=== PATIENT | male | born 1990 | race Caucasian/White ===

== ENCOUNTER 2016-08-31 06:28 | Emergency (ER) | payer OTHER ==
[~2016-08-31] VITALS: Ht 177.8 cm; Wt 74.8 kg
[~2016-08-31 06:28] MED LIST: ALPRAZOLAM1 M2 PO; AMOXICILLIN500 M1 PO; BACTRIM DS 8001 TAB PO; KEFLEX500 MG PO; TRAMADOL50 MG PO
[2016-08-31 06:37] VITALS: BP 146/73
--- NOTE | 2016-08-31 06:42 | ED SKIN/ALLERGY COMPLAINT ---
History of Present Illness General Chief Complaint: Skin Rash/ Abcess Stated Complaint: ABCESS ON RIGHT LEG Source: patient Exam Limitations: no limitations Vital Signs & Intake/Output Vital Signs & Intake/Output Vital Signs Date Time Temp Pulse Resp B/P B/P Pulse O2 O2 Flow FiO2 Mean Ox Delivery Rate 08/31 0637 98.5 83 18 146/73 99 Room Air Room Air Allergies Coded Allergies: NO KNOWN ALLERGIES (06/22/15) Reconcile Medications Alprazolam 1 MG TABLET 1 TAB PO TIDPRN PRN ANXIETY (Reported) Cephalexin (Keflex) 500 MG CAPSULE 1 CAP PO TID INFECTION Triage Note: TRIAGE: 26 Y/O MALE PRESENTS C/O ?ABCESS TO POSTERIOR RIGHT THIGH. PATIENT REPORTS "I POPPED IT LAST NIGHT, BUT NOW MY WORK NEEDS A NOTE." PATIENT ALSO REPORTS ?ABCESS CONTINUES TO RECUR. Triage Nurses Notes Reviewed? yes Onset: Abrupt Duration: minute(s): (few) Timing: recent history Severity: mild HPI: 26-year-old male history of recurrent abscesses presents to the ER for chief complaint of a cyst on his left buttock that drained. He states he was at work yesterday and had a hard time sitting down. He states when he was in the shower yesterday he was able to get the abscess to pop and then he was able to drain pus. No fever or chills. He has had recurrent issues in the same area. Usually they occur once a month lately they have a twice a month. Usually go away quickly with antibiotics. He is a half pack per day smoker. Denies any other medical history. Past History Travel History Traveled to [place] past 21 day No Medical History Any Pertinent Medical History? 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 No Review of Systems Review of Systems Constitutional: Denies: chills, fever. EENTM: Reports: no symptoms. Respiratory: Denies: cough, short of breath. Cardiovascular: Denies: chest pain, palpitations. GI: Reports: no symptoms. Genitourinary: Reports: no symptoms. Musculoskeletal: Reports: no symptoms. Skin: Reports: see HPI, erythema. Neurological/Psychological: Reports: no symptoms. Hematologic/Endocrine: Denies: bruising, bleeding. Immunologic/Allergic: Reports: no symptoms. All Other Systems: Reviewed and Negative Physical Exam Physical Exam General Appearance: well developed/nourished, alert, awake Head: atraumatic, normal appearance Eyes: Bilateral: normal appearance, PERRL, EOMI. Ears, Nose, Throat: normal pharynx, hearing grossly normal Neck: normal inspection, supple, full range of motion Respiratory: normal breath sounds, chest non-tender, no respiratory distress Cardiovascular: regular rate/rhythm Gastrointestinal: soft, non-tender Back: OPEN DRAINING AREA LEFT BUTTOCK (FINGERTIP) NO FLUCTUANCE Extremities: normal inspection, normal range of motion, no edema Neurologic/Psych: awake, alert, oriented x 3, normal mood/affect Lymphatic: no anterior cervical yoselin Progress Differential Diagnosis: abscess/cellulitis Plan of Care: open, draning area Departure Departure Time of Disposition: 647 Disposition: HOME OR SELF CARE Condition: Stable Clinical Impression Primary Impression: Abscess Referrals: ADENIKE CALLAHAN,ELIZA Moreno (PCP/Family) Additional Instructions: Take the Keflex as directed. Motrin and Tylenol is safe for pain. Warm soaks to the area. Keep the area very clean especially after toileting to prevent further infections. Departure Forms: Customer Survey General Discharge Information Prescriptions: Current Visit Scripts Cephalexin (Keflex) 1 CAP PO TID #30 CAP
[2016-08-31] MEDS ORDERED: KEFLEX500 M1 PO (06:50)
== END 2016-08-31 06:57 ==
LOC: ERH 06:28
DX: L02.31 Cutaneous abscess of buttock (principal)

== ENCOUNTER 2017-07-24 16:09 | Emergency (ER) | payer SELFPAY ==
[~2017-07-24] VITALS: Ht 177.8 cm; Wt 74.8 kg
[~2017-07-24 16:09] MED LIST changes: +IBUPROFEN600 M1 PO; +IBUPROFEN800 M1 PO; +KEFLEX500 M1 PO; +KETOROLAC TROME10 M1 PO; +METHADONE HCL10 M1 PO; +XANAX1 M1 PO; +XANAX2 M1 PO; +ZOFRAN ODT4 M1 SL
[2017-07-24 16:12] VITALS: BP 111/74
--- NOTE | 2017-07-24 17:08 | ED GENERAL ADULT ---
History of Present Illness General Chief Complaint: Fall Stated Complaint: FELL DOWN FLIGHT OF STAIRS, "PASSED OUT" Source: patient, family, old records Exam Limitations: intoxication Vital Signs & Intake/Output Vital Signs & Intake/Output Vital Signs Date Time Temp Pulse Resp B/P B/P Pulse O2 O2 Flow FiO2 Mean Ox Delivery Rate 07/24 1612 98.3 89 18 111/74 98 Room Air Allergies Coded Allergies: No Known Allergies (12/20/16) Reconcile Medications Alprazolam (Xanax) 1 MG TABLET 1 TAB PO BID PRN ANXIETY Alprazolam (Xanax) 2 MG TABLET 1 TAB PO DAILY PRN ANXIETY Ibuprofen 600 MG TABLET 1 TAB PO TID pain with food Ibuprofen 800 MG TABLET 1 TAB PO TID PRN PAIN Ibuprofen 800 MG TABLET 1 TAB PO TID pain Ketorolac Tromethamine 10 MG TABLET 1 TAB PO TID PRN PAIN RECIEVED IM IN ER Methadone Hydrochloride (Methadone HCl) 10 MG TABLET 6 TAB PO DAILY PAIN ( Reported) Ondansetron (Zofran Odt) 4 MG TAB.RAPDIS 1 TAB SL TID PRN nausea Triage Note: 27 YO MALE TO TRIAGE C/O "I FELL DOWN 2 FLIGHTS OF STAIRS" STATES HE GOT DIZZY AND FELL. DENIES LOC. C/O PAIN ALL OVER. STATES "I FELL DOWN THE STAIRS THE OTHER DAY AND THEN AGAIN TODAY" STATES HIS METHADONE DOSE HAS BEEN LOWERED AND HE THINKS THAT COULD BE WHY. DENIES DIZZINESS/LIGHTHEADENESS AT THIS TIME. DENIES C-SPINE TENDERNESS. PT STATES HE IS ALSO TAKING XANAX 1MG TID. PER MOTHER "HE IS TAKING WAY MORE THEN HE IS SUPPOSED TO" Triage Nurses Notes Reviewed? yes Onset: Last week Duration: week(s):, continues in ED, intermittent Timing: recent history Injury Environment: home Severity: moderate, severe Modifying Factors: Worsens With: medication. HPI: Patient reports falling down the stairs twice today sustaining multiple abrasions and contusions. His mother reports he is been taking too much of his Xanax and methadone and that he fell on the stairs last week also. He denies fever chills nausea vomiting diarrhea abdominal pain chest pain shortness breath headache dysuria rash bleeding loss consciousness change in bowel bladder habit. Past History Travel History Traveled to [place] past 21 day No Medical History Any Pertinent Medical History? 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 No Review of Systems Review of Systems Constitutional: Reports: no symptoms. EENTM: Reports: no symptoms. Respiratory: Reports: no symptoms. Cardiovascular: Reports: no symptoms. GI: Reports: no symptoms. Genitourinary: Reports: no symptoms. Musculoskeletal: Reports: no symptoms. Skin: Reports: see HPI. Neurological/Psychological: Reports: see HPI, weakness. Hematologic/Endocrine: Reports: no symptoms. Immunologic/Allergic: Reports: no symptoms. All Other Systems: Reviewed and Negative Physical Exam Physical Exam General Appearance: well developed/nourished, alert, awake, intoxicated Head: atraumatic, normal appearance Eyes: Bilateral: normal appearance, PERRL, EOMI. Ears, Nose, Throat: normal pharynx, normal ENT inspection, hearing grossly normal Neck: normal inspection, supple, full range of motion, no midline tenderness Respiratory: normal breath sounds, chest non-tender, no respiratory distress, quiet respiration, lungs clear Cardiovascular: regular rate/rhythm, normal peripheral pulses, norml femoral pulses equa Peripheral Pulses: 4+ carotid (R), 4+ carotid (L) Gastrointestinal: normal bowel sounds, soft, non-tender, no organomegaly Back: normal range of motion, no vertebral tenderness, scattered abrasions right thoracolumbar area Extremities: scattered abrasions to bilateral elbows left knee left hip Neurologic/Psych: no motor/sensory deficits, awake, alert, 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 Skin: intact, normal color, warm/dry Lymphatic: no anterior cervical yoselin Core Measures ACS in differential dx? No CVA/TIA Diagnosis: No Sepsis Present: No Sepsis Focused Exam Completed? No Progress Differential Diagnoses I considered the following diagnoses in my evaluation of the patient: drug intoxication electrolyte abnormality Plan of Care: Orders Procedure Date/time Status URINE DRUG SCREEN FOR ER ONLY 07/25 1647 Active URINALYSIS 07/25 1647 Complete ETHANOL 07/25 1647 Active COMPREHENSIVE METABOLIC PANEL 07/25 1647 Active CBC WITHOUT DIFFERENTIAL 07/25 1647 Complete Laboratory Tests 07/24/17 165: Serum Alcohol Pending 07/24/17 165: Sodium Pending, Potassium Pending, Chloride Pending, Carbon Dioxide Pending, Anion Gap Pending, BUN Pending, Creatinine Pending, BUN/Creatinine Ratio Pending , Glucose Pending, Calcium Pending, Total Bilirubin Pending, AST Pending, ALT Pending, Alkaline Phosphatase Pending, Total Protein Pending, Albumin Pending, Globulin Pending, Albumin/Globulin Ratio Pending, CBC w Diff NO MAN DIFF REQ, RBC 4.14 L, MCV 92.2, MCH 30.3, MCHC 32.9 L, RDW 13.1, MPV 7.4, Gran % 71.1, Lymphocytes % 20.4 L, Monocytes % 7.4, Eosinophils % 0.8, Basophils % 0.3, Absolute Granulocytes 5.6, Absolute Lymphocytes 1.6, Absolute Monocytes 0.6, Absolute Eosinophils 0.1, Absolute Basophils 0, Methadone Screen Pending, Barbiturate Screen Pending, Ur Phencyclidine Scrn Pending, Amphetamines Screen Pending, U Benzodiazepines Scrn Pending, Urine Cocaine Screen Pending, Urine Cannabis Screen Pending, Urine Color YEL, Urine Clarity CLEAR, Urine pH 7.0, Ur Specific [place] 1.015, Urine Protein NEG, Urine Ketones NEG, Urine Nitrite NEG, Urine Bilirubin NEG, Urine Urobilinogen 0.2, Ur Leukocyte Esterase NEG, Ur Microscopic SEDIMENT EXAMINED, Urine RBC >75 H, Urine WBC 1-3 H, Ur Epithelial Cells RARE, Urine Bacteria RARE H, Urine Mucus FEW, Urine Hemoglobin LARGE H, Urine Glucose NEG Initial ED EKG: none Departure Departure Time of Disposition: 1717 Disposition: LEFT AGAINST MEDICAL ADVICE Condition: Stable Clinical Impression Primary Impression: Altered mental status, unspecified Secondary Impressions: Abrasion, multiple sites, Fall (on) (from) unspecified stairs and steps, initial encounter, Methadone use, Xanax use disorder, moderate Referrals: Yi CALLAHAN,Ainsley Moreno (PCP/Family) Departure Forms: General Discharge Information Critical Care Note Critical Care Note Critical Care Time: non-applicable
[2017-07-24 17:13] LABS: ABSOLUTE BASOPHIL COUNT 0 /CUMM (0.0-0.2); ABSOLUTE EOSINOPHIL COUNT 0.1 /CUMM (0.0-0.7); ABSOLUTE GRANULOCYTE CT 5.6 /CUMM (1.4-6.5); ABSOLUTE LYMPH COUNT 1.6 /CUMM (1.2-3.4); ABSOLUTE MONOCYTE COUNT 0.6 /CUMM (0.10-0.60); BASOPHIL % 0.3 % (0.0-2.0); EOSINOPHIL % 0.8 % (0-5); GRANULOCYTE % 71.1 % (42.2-75.2); HEMATOCRIT 38.2 % (42-52); MEAN CORPUSCULAR HGB 30.3 PG (27.0-31.0); MEAN CORPUSCULAR HGB CONC 32.9 G/DL (33.0-37.0); MEAN CORPUSCULAR VOLUME 92.2 FL (80.0-94.0); MEAN PLATELET VOLUME 7.4 FL (7.4-10.4); PLATELET COUNT 317 /CUMM (130-400); RBC DISTRIBUTION WIDTH 13.1 % (11.5-14.5); RED BLOOD CELL CT 4.14 /CUMM (4.70-6.10); WHITE BLOOD CELL COUNT 7.8 /CUMM (4.8-10.8)
== END 2017-07-24 17:27 | disposition left against medical advice (07) ==
LOC: ERH 16:09
PROVIDERS: Emergency Medicine
DX: T14.8XXA Other injury of unspecified body region, initial encounter (principal); R41.82 Altered mental status, unspecified; W10.9XXA Fall (on) (from) unspecified stairs and steps, initial encounter; Y92.009 Unspecified place in unspecified non-institutional (private) residence as the place of occurrence of the external cause; Y93.9 Activity, unspecified
CPT/HCPCS: 80307; 81001; G0480

== ENCOUNTER 2017-08-29 14:02 | Emergency (ER) | payer OTHER ==
[~2017-08-29] VITALS: Ht 177.8 cm; Wt 68.0 kg
--- NOTE | 2017-08-29 14:47 | ED PSYCHIATRIC COMPLAINT ---
History of Present Illness General Chief Complaint: Psychiatric Related Complaint Stated Complaint: CUT WRIST IN PRISON CELL, ON PEER Source: patient, old records, EMS, police Exam Limitations: no limitations Allergies Coded Allergies: No Known Allergies (12/20/16) Reconcile Medications Alprazolam (Xanax) 1 MG TABLET 1 TAB PO BID PRN ANXIETY Alprazolam (Xanax) 2 MG TABLET 1 TAB PO DAILY PRN ANXIETY Clonidine HCl 0.1 MG TABLET 1 TAB PO BID withdrawal symptoms Ibuprofen 600 MG TABLET 1 TAB PO TID pain with food Ibuprofen 800 MG TABLET 1 TAB PO TID PRN PAIN Ibuprofen 800 MG TABLET 1 TAB PO TID pain Ketorolac Tromethamine 10 MG TABLET 1 TAB PO TID PRN PAIN RECIEVED IM IN ER Methadone Hydrochloride (Methadone HCl) 10 MG TABLET 6 TAB PO DAILY PAIN ( Reported) Ondansetron (Zofran Odt) 4 MG TAB.RAPDIS 1 TAB SL TID PRN nausea Triage Note: 27 YO MALE ALFREDO ON PEER FROM PRISON CELL. PER MANAGER PRODUCT MANAGEMENT, PT WAS FOUND IN CELL WITH A SMALL PIECE OF METAL HE FOUND ON THE FLOOR AND CUT HIS R WRIST STATING "HE WOULD RATHER THEN SIT AND DETOX IN A CELL FOR 3 DASY" PT ARRIVES & ORIENTED X3, NOTED WITH SUPERFISCIAL ABRASION TO R WRIST AREA, NO ACTIVE BLEEDING NOTED. 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 SECUIRTY CALLED FOR WANDING. Triage Nurses Notes Reviewed? yes Onset: Just prior to arrival Duration: minute(s):, constant, continues in ED Timing: recent history Severity: moderate Associated Symptoms: anxiety, suicidal ideation HPI: While in police custody patient cut his right wrist with a piece of metal and told the police he was suicidal. He is here on PEER. He reports doing a to get out of [facility] because he was uncomfortable and wants to go to methadone maintenance program for his opiate addiction. He denies fever chills nausea vomiting diarrhea abdominal pain chest pain shortness breath headache dysuria rash. (Ladonna CALLAHAN,Adalid) Vital Signs & Intake/Output Vital Signs & Intake/Output Vital Signs Date Time Temp Pulse Resp B/P B/P Pulse O2 O2 Flow FiO2 Mean Ox Delivery Rate 05/06 0441 97.6 65 18 96/76 100 Room Air 08/29 2123 98.1 70 18 105/52 98 Room Air 08/29 1906 98.3 59 20 132/72 99 Room Air 08/29 1707 97.5 52 18 101/47 98 Room Air 08/29 1500 89 128/86 05 1408 98.2 89 15 128/86 97 Room Air Room Air ED Intake and Output 08/30 0000 08/29 1200 Intake Total 0 Output Total Balance 0 Intake, Oral 0 Patient 150 lb Weight Weight Reported by Patient Measurement Method (Kelsey CALLAHAN,Sim Marquez) Past History Travel History Traveled to [place] past 21 day No Medical History Any Pertinent Medical History? 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 No (Adalid Dougherty MD) Review of Systems Review of Systems Constitutional: Reports: no symptoms. EENTM: Reports: no symptoms. Respiratory: Reports: no symptoms. Cardiovascular: Reports: no symptoms. GI: Reports: no symptoms. Genitourinary: Reports: no symptoms. Musculoskeletal: Reports: no symptoms. Skin: Reports: no symptoms. Neurological/Psychological: Reports: see HPI, anxiety, confusion. Hematologic/Endocrine: Reports: no symptoms. Immunologic/Allergic: Reports: no symptoms. All Other Systems: Reviewed and Negative (Adalid Dougherty MD) Physical Exam Physical Exam General Appearance: well developed/nourished, alert, awake, anxious, mild distress Head: atraumatic, normal appearance Eyes: Bilateral: normal appearance, PERRL, EOMI. 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 patient not suicidal, Patient reports telling police he wanted to kill himself to get out of the cold cell without comfort. (Ladonna CALLAHAN,Adalid) Progress Differential Diagnosis: drug intoxication, drug overdose, drug withdrawal, electrolyte abnormality, hypoglycemia Hand-Off Endorsed To: Kelsey CALLAHAN,Sim Marquez Endorsed Time: 1899 Pending: consult (Ladonna CALLAHAN,Adalid) Plan of Care: Orders Procedure Date/time Status Continuous Observation Monitor 09/09 182 Active Regular Diet 08/30 B Active Regular Diet 08/29 D Complete Continuous Observation Monitor 08/29 1426 Active CIWA 08/29 142 Active URINE DRUG SCREEN FOR ER ONLY 08/29 142 Complete ETHANOL 08/29 142 Complete COMPREHENSIVE METABOLIC PANEL 08/29 142 Complete CBC WITHOUT DIFFERENTIAL 08/29 1424 Complete ED CRISIS PSYCH CONSULT 08/29 142 Active Laboratory Tests 08/29/17 1707: Urine Opiates Screen > 4000.00 H, Methadone Screen < 40, Barbiturate Screen < 60, Ur Phencyclidine Scrn < 6.00, Amphetamines Screen < 100, U Benzodiazepines Scrn > 800 H, Urine Cocaine Screen < 50, Urine Cannabis Screen > 80.00 H 08/29/17 1445: Anion Gap 14, Estimated GFR > 60, BUN/Creatinine Ratio 8.3, Glucose 113 H, Calcium 9.7, Total Bilirubin 0.8, AST 18, ALT 22, Alkaline Phosphatase 92, Total Protein 7.5, Albumin 4.8, Globulin 2.7, Albumin/Globulin Ratio 1.8, CBC w Diff NO MAN DIFF REQ, RBC 4.55 L, MCV 90.3, MCH 29.3, MCHC 32.4 L, RDW 13.5, MPV 7.0 L, Gran % 82.9 H, Lymphocytes % 12.1 L, Monocytes % 4.5, Eosinophils % 0.4, Basophils % 0.1, Absolute Granulocytes 9.6 H, Absolute Lymphocytes 1.4, Absolute Monocytes 0.5, Absolute Eosinophils 0, Absolute Basophils 0, Serum Alcohol < 10.0 (Kelsey CALLAHAN,Sim Marquez) Departure Departure Disposition: HOME OR SELF CARE Condition: Stable Clinical Impression Primary Impression: Opiate abuse, continuous Secondary Impressions: Depression with suicidal ideation Referrals: Yi CALLAHAN,Ainsley Moreno (PCP/Family) Departure Forms: Customer Survey General Discharge Information Prescriptions: Current Visit Scripts Clonidine HCl 1 TAB PO BID #4 TAB (Ladonna CALLAHAN,Adalid) Departure Comments pt signed out to me by dr. dougherty, 08/29/17, 7pm pt signed out to dr. dougherty by me, 08/30/17, 7am. (Kelsey CALLAHAN,Sim Marquez)
[2017-08-29 14:49] LABS: ABSOLUTE BASOPHIL COUNT 0 /CUMM (0.0-0.2); ABSOLUTE EOSINOPHIL COUNT 0 /CUMM (0.0-0.7); ABSOLUTE GRANULOCYTE CT 9.6 /CUMM (1.4-6.5); ABSOLUTE LYMPH COUNT 1.4 /CUMM (1.2-3.4); ABSOLUTE MONOCYTE COUNT 0.5 /CUMM (0.10-0.60); BASOPHIL % 0.1 % (0.0-2.0); EOSINOPHIL % 0.4 % (0-5); GRANULOCYTE % 82.9 % (42.2-75.2); HEMATOCRIT 41.1 % (42-52); MEAN CORPUSCULAR HGB 29.3 PG (27.0-31.0); MEAN CORPUSCULAR HGB CONC 32.4 G/DL (33.0-37.0); MEAN CORPUSCULAR VOLUME 90.3 FL (80.0-94.0); PLATELET COUNT 354 /CUMM (130-400); RBC DISTRIBUTION WIDTH 13.5 % (11.5-14.5); RED BLOOD CELL CT 4.55 /CUMM (4.70-6.10); WHITE BLOOD CELL COUNT 11.6 /CUMM (4.8-10.8)
--- NOTE | 2017-08-29 20:04 | ED PSY CRISIS COLLATERAL NOTE ---
Collateral Note Collateral Note Family/Inform/Jessy Contacts: Spoke to patient's mother, Ioana Kaufman, . Ioana states the patient had made suicidal statements in the past on several occasions, but never acted upon them. Ioana states the patient has no history of suicide attempts. Ioana states the patient lives alone with his dog "who is everything to him." Ioana states the patient would never hurt himself as no one would care for his dog. Ioana states the patient has no weapons in his home that she is aware of. Ioana states she lives 5 minutes away from the patient and states that the patient would call her if he ever felt suicidal prior to acting upon his thought. Ioana states the patient was on methadone maintenance with a clinic and discharged on a rapid taper because his insurance lapsed. Ioana states the [facility] was willing to accept him as a methadone maintenance patient as long as he received a letter from his current prescriber that his Xanax would be lowered from 3mg daily to 2mg daily. Ioana states the letter was received via email today and she would bring the patient to [facility] on Thursday to begin his methadone maintenance treatment. Ioana states that she believes the patient would be safe to discharge from the hospital. She states she would pick him up from the hospital , drop him off at home and see him first thing in the morning.
--- NOTE | 2017-08-29 22:56 | ED PSYCH CRISIS CONSULTATION ---
Crisis Consult Basic Assessment Date of Consult: 08/29/17 Responsible Person/Accompanied By: ALFREDO on PEER Insurance Authorization: Insurance #1: Insurance name: SELF-PAY Phone number: Policy number: Group number: Authorization number: ED Provider: Patient's ED Provider: Adalid Dougherty MD Primary Care Physician: Patient's PCP: Ainsley Richmond MD PCP's Current Psychiatrist: JOELLEN Chambersingford Chief Complaint: Psychiatric Related Complaint Patient's Quote: "I knew I would go to the hospital" Present Illness: Pt. is a 27 year old male ALFREDO from the [employer] on a PEER stating that pt. had "stated he wanted to kill himself" and "tried to slicing his arm while in a cell". Pt. reported to this [facility] that he had been receiving methadone maintenance treatment at a facility in [place] until "my insurance ran out". Pt. reported that the treatment facility began tapering him off of his methadone and that he went from 70mg to 4mg in a matter of weeks. Pt. reported that he began to experience withdrawals and so began using heroin again about two weeks ago. Pt. reported that in the last couple of days he was using 20 bags a day, IV. Pt. reported that last night, he used the last of his heroin (one bag). Pt. reported that this morning while shopping with his mother , he decided to steal razor blades from the store so that he could sell them and then buy more heroin. Pt. was caught by store personnel stealing the razors and initially got away, but [place] [employer] later arrested him and brought him to the station. Pt. reported that while in the cell, he began to experience withdrawal symptoms and asked the police to take him to the hospital to detox, however they said "no". Pt. said that he then said that he was going to harm himself and began rubbing his forearm against the edge of the metal bed post in his cell. Pt. reported that his motive in doing this was so that he could get out of the cell and be brought to the hospital. Pt. denied having had any suicidal intent or thoughts. Pt. also denied any current depression. Pt. reported that he has never attempted suicide and has never had any thoughts of ending his life. Pt. was admitted to [facility] in 2016 after making a homicidal statement to his mother. Pt. also has history of making suicidal threats. Pt. also reports that he has a past diagnosis of Bipolar Disorder and was on [place] at one time; however reported that he went off of it because it "made me sick". Pt. is currently being prescribed Xanax by Delfina CUENCA. Pt. also reported that in the past week, he did have an intake at the [facility] (since they take clients without insurance) and was hoping to continue his methadone maintenance treatment there, however they said that he first needed to get a letter from Ms. Fabian stating that she would lower his Xanax from 3mg a day to 2mg a day. Pt. said that he was not able to get in touch with Ms. Fabian until today. Pt. said that he now plans on going back to [facility] on Thursday (08/31/17) so that he can get back on methadone maintenance. This [facility] also spoke to pt's mother, Dotty, via telephone. She reported that she has never known pt. to attempt to kill himself nor has pt. made any suicidal statements recently. She said that pt. has made threats in the past, but that he is "the boy who cried villagomez". She said that she does not believe that pt. would ever try to kill himself. She confirmed that she plans on taking him to [facility] on Thursday with the letter from Ms. Fabian so that pt. can continue his methadone treatment there. Dotty said that she could not pick up attendant pt. from the ED tonight. However, she did say that she will come to the ED tomorrow morning to pick him up and then will be able to stay with him at his home until Thursday morning when she will take him to [facility]. Both pt and his mother stated that pt. does not have access to guns or other weapons. The CSS[facility] was completed with pt. Pt's risk factors are: self-injurious behavior without suicidal intent in the past week, currently detoxing from heroin, previous psychiatric treatment and diagnoses, a hx of treatment non-compliance, highly impulsive behaviors, substance abuse or dependence and recent anxiety or agitation. His protective factors are responsibility to his dog and the support of his mother. Patient's Address: [address] [place] [id number] Other Phone Number: Who Do You Live With? Patient/Self Family/Informants Interviewed: mother (Dotty Kaufman) Allergies - Coded Allergies: No Known Allergies (12/20/16) Current Medications - Scheduled Medications Ibuprofen 600 MG TABLET 1 TAB PO TID pain #10 TAB Prescribed by Harvey Ellis DO on 02/05/17 Ibuprofen 800 MG TABLET 1 TAB PO TID pain #30 TAB Prescribed by Dex Thao on 12/10/16 Methadone Hydrochloride (Methadone HCl) 10 MG TABLET 6 TAB PO DAILY PAIN ( Reported) Entered as Reported by Jolie Mckeon on 11/13/16 0825 Scheduled PRN Medications Alprazolam (Xanax) 1 MG TABLET 1 TAB PO BID PRN ANXIETY #4 TAB Prescribed by Kleber Ortiz on 02/07/17 Alprazolam (Xanax) 2 MG TABLET 1 TAB PO DAILY PRN ANXIETY #3 TAB Prescribed by Kleber Ortiz on 02/07/17 Ibuprofen 800 MG TABLET 1 TAB PO TID PRN PAIN #30 TAB Prescribed by Virgie Calloway MD on 02/04/17 Ketorolac Tromethamine 10 MG TABLET 1 TAB PO TID PRN PAIN #15 TAB Prescribed by Kleber Ortiz on 02/07/17 Ondansetron (Zofran Odt) 4 MG TAB.RAPDIS 1 TAB SL TID PRN nausea #10 TAB Prescribed by Yue Ramos on 12/19/16 Laboratory Results: Laboratory Tests 08/29/17 1707: Urine Opiates Screen > 4000.00 H, Methadone Screen < 40, Barbiturate Screen < 60, Ur Phencyclidine Scrn < 6.00, Amphetamines Screen < 100, U Benzodiazepines Scrn > 800 H, Urine Cocaine Screen < 50, Urine Cannabis Screen > 80.00 H 08/29/17 1445: Anion Gap 14, Estimated GFR > 60, BUN/Creatinine Ratio 8.3, Glucose 113 H, Calcium 9.7, Total Bilirubin 0.8, AST 18, ALT 22, Alkaline Phosphatase 92, Total Protein 7.5, Albumin 4.8, Globulin 2.7, Albumin/Globulin Ratio 1.8, CBC w Diff NO MAN DIFF REQ, RBC 4.55 L, MCV 90.3, MCH 29.3, MCHC 32.4 L, RDW 13.5, MPV 7.0 L, Gran % 82.9 H, Lymphocytes % 12.1 L, Monocytes % 4.5, Eosinophils % 0.4, Basophils % 0.1, Absolute Granulocytes 9.6 H, Absolute Lymphocytes 1.4, Absolute Monocytes 0.5, Absolute Eosinophils 0, Absolute Basophils 0, Serum Alcohol < 10.0 Past History Past Medical History Neurological: NONE EENT: NONE Cardiovascular: NONE Respiratory: ASTHMA A CHILD Gastrointestinal: NONE Hepatic: NONE Renal: NONE Musculoskeletal: NONE Psychiatric: anxiety, bipolar disease, depression, IV drug abuse, opioid dependence, substance abuse (also using Marijuana) Endocrine: NONE Blood Disorders: NONE Cancer(s): NONE DIRECTOR INFORMATICS/Reproductive: NONE Past Surgical History Surgical History: 1 Psychosocial History Strengths/Capabilities: The patient's mother appears to be supportive and the patient was able to get a couple of months clean off of drugs. Has intake at [facility]. Physical Limitations (Interventions): None Psychiatric Treatment History Psych Treatment Psychiatric Treatment Yes Inpatient Treatment Yes Outpatient Treatment Yes Location of Treatment Sees Delfina Fabian APRN outpatient. One inp. admission in [facility] Reason for Treatment Anxiety, Bipolar D/O Dates of Treatment see Ms. Fabian currently. [facility] in 2016/. Response to Treatment did not f/u with aftercare plan after being d/c'ed from [facility] in 2015 Diagnosis by History: n/a Substance Use/Abuse History Drug Use/Abuse 1 Substances Used/Abused Yes Substance Used/Abused Heroin First Use unk Last Used last night How much used/taken 1 bag How often daily For how long past two weeks Route of use IV Drug Use/Abuse 2 Substances Used/Abused Yes Substance Used/Abused Marijuana First Use unk Last Used yesterday How much used/taken unk How often daily For how long unk Route of use smoking Substance Abuse Treatment Substance Abuse Treatment Past Substance Abuse TX Yes Inpatient Treatment Yes Outpatient Treatment Yes Location of Treatment Methadone Maintenance in [place], has done inpatient also Reason for Treatment Heroin detox, methadoine maintenance Dates of Treatment was doing methadone maintenance up until a few weeks ago when insurance Response to Treatment pt. experinced w/d's due to being tapered off of methadone too quickly- began using heroin again two weeks ago. Prior to this, pt. reports had been clean for several years. Comments: n/a Current Mental Status Mental Status Orientation: Person, Place, Situation Affect: WNL Speech: WNL Neuro-vegetative: WNL Appearance Appearance- Dress/Hygiene: WNL Behaviors Thought Process: WNL Thought Content: WNL Memory: WNL Insight: Poor SI/HI Risk Assessment Past Suicidal Ideation/Attempts No (pt. denies) Current Suicidal Ideation/Att No (pt. denies) Past Homicidal Ideation/Att: Yes (made threats in past (2016)) Current Homicidal Ideation/Attempts No (pt. denies) Degree of Intent: None Danger To: none Gravely Disabled: none Risk Factors: SA/MH hospitalized, substance abuse, poor impulse control, lives alone, male Lethality Ratin (mild) PTSD Checklist PTSD Done? patient declined ED Management Sitter: Yes Restraints: No DSM5/PS Stressors/Medical Prob Diagnosis' (DSM 5, Stressors, Medical): F11.20 - Opioid Use D/O, severe. Stressors - detoxing from Heroin. Medical - none Current GAF: 45 Comments: detoxing from heroin currently Departure Disposition Psych Medical Clearance Date: 08/29/17 Medically Cleared at: 1814 Time Started: 1814 Time Ended: 1899 Psychiatrist Consulted: Sim Olivo MD Date Disposition Established: 08/29/17 Time Disposition Established: 1899 Plan for Disposition - Modality: H/O in ED Facility: [facility] Follow-up Appt Date: 08/31/17 Contact: [facility] Telephone: n/a Rationale for Disposition: Pt. denies suicidal thoughts and reports that he self-harmed in senior care cell so that he cpould be brought to ED because he was detoxing from heroin. Pt. will be held over in ED tonight so that mother can pick him up and take him home where she hasgreed to saty with him until Thursday morning when he will go to [facility] to get back oin methadone. ED doctor will be asked to provide pt. with a small script for Clonodine to treat any w/d symptoms. Additional Instructions: n/a Referrals Yi CALLAHAN,Ainsley Moreno (PCP/Family)
[2017-08-30 04:41] VITALS: BP 96/76
[2017-08-30] MEDS ORDERED: CLONIDINE HCL0.1 MG PO (06:02)
== END 2017-08-30 06:15 ==
LOC: ERH 14:02
PROVIDERS: Emergency Medicine
DX: F11.10 Opioid abuse, uncomplicated (principal); F32.9 Major depressive disorder, single episode, unspecified; R45.851 Suicidal ideations
CPT/HCPCS: 80307; G0463; G0480

== ENCOUNTER 2017-11-02 19:19 | Inpatient (IN) | payer OTHER ==
[~2017-11-02] VITALS: Ht 175.3 cm; Wt 69.4 kg
[~2017-11-02 19:19] MED LIST changes: +CLONIDINE HCL0.1 MG PO
--- NOTE | 2017-11-02 19:24 | ED PSYCHIATRIC COMPLAINT ---
See Addendum History of Present Illness General Chief Complaint: ETOH/Drug Related Complaint Stated Complaint: BIBA 40 PILLS SWALLOWED WITH RUBBING ALCOHOL Source: patient, old records, EMS, police Exam Limitations: no limitations Vital Signs & Intake/Output Vital Signs & Intake/Output Vital Signs Date Time Temp Pulse Resp B/P B/P Pulse O2 O2 Flow FiO2 Mean Ox Delivery Rate 11/03 1334 97.6 78 16 110/70 98 Room Air 11/03 1107 98.2 75 14 110/60 95 Room Air 11/03 0934 98.1 76 14 110/60 98 Room Air 11/03 0736 98.3 71 12 112/63 93 Room Air 11/03 0536 98.7 80 12 108/66 96 Room Air 11/03 0352 16 11/03 0344 98.7 78 10 110/66 95 Room Air 11/03 0045 98.4 76 14 112/64 98 Room Air 11/02 2213 98.3 75 20 116/64 99 Room Air 11/02 2207 Room Air 11/02 1953 97.3 77 18 114/67 98 Room Air ED Intake and Output 11/03 0000 11/02 1200 Intake Total Output Total Balance Patient 150 lb Weight Weight Estimated Measurement Method Allergies Coded Allergies: No Known Allergies (12/20/16) Triage Nurses Notes Reviewed? yes HPI: Patient brought in on a police paper after a potential suicide attempt. Patient 's mother called the police stating that the patient took 40 Celexa in a suicide attempt. Patient denies taking any pills. Patient states that his mother through the pill bottle at him and told him to overdose and and when he went and she took the pills and flushed them down the toilet. Patient states that then he left the house and then the police found him and made him come to the emergency department. Patient denies any suicide ideation. Patient is on the methadone program. Patient denies coingestions however the mom states that he also took his whole bottle of Xanax. (Marine CALLAHAN,[place]) Reconcile Medications Alprazolam 0.5 MG TABLET 1 TAB PO 4XDP PRN ANXIETY (Reported) Methadone HCl 10 MG/ML ORAL.CONC 80 MG PO DAILY MAINTENCE (Reported) (Ladonna CALLAHAN,Adalid) Past History Travel History Traveled to [place] past 21 day No Medical History Any Pertinent Medical History? see below for history Neurological: NONE EENT: NONE Cardiovascular: NONE Respiratory: ASTHMA A CHILD Gastrointestinal: NONE Hepatic: NONE Renal: NONE Musculoskeletal: NONE Psychiatric: anxiety, bipolar disease, depression, IV drug abuse, opioid dependence, substance abuse (also using Marijuana) Endocrine: NONE Blood Disorders: NONE Cancer(s): NONE DB2 SYSTEMS PROGRAMMER/Reproductive: NONE History of MRSA: Yes History of VRE: Yes History of CDIFF: Yes Surgical History Surgical History: none Psychosocial History Who do you live with Patient/Self What is your primary language Icelandic Tobacco Use: Current Daily Use Daily Tobacco Use Amount/Type: => 5 Cigarettes daily ETOH Use: occasional use Illicit Drug Use: heroin, benzodiazepines Family History Family History, If Any: grand father Relation not specified for: FH: CAD (coronary artery disease) Hx Contributory? No (Marine CALLAHAN,[place]) Review of Systems Review of Systems Constitutional: Reports: no symptoms. EENTM: Reports: no symptoms. Respiratory: Reports: no symptoms. Cardiovascular: Reports: no symptoms. GI: Reports: no symptoms. Genitourinary: Reports: no symptoms. Musculoskeletal: Reports: no symptoms. Skin: Reports: no symptoms. Neurological/Psychological: Reports: no symptoms. Hematologic/Endocrine: Reports: no symptoms. Immunologic/Allergic: Reports: no symptoms. All Other Systems: Reviewed and Negative (Marine CALLAHAN,[place]) Physical Exam Physical Exam General Appearance: well developed/nourished, alert, awake, anxious, mild distress Head: atraumatic, normal appearance Eyes: Bilateral: PERRL, EOMI, other (SLUGGISH). Ears, Nose, Throat: normal pharynx, normal ENT inspection, hearing grossly normal Neck: normal inspection, supple, full range of motion Respiratory: normal breath sounds, chest non-tender, no respiratory distress, lungs clear Cardiovascular: regular rate/rhythm, normal peripheral pulses Gastrointestinal: normal bowel sounds, soft, non-tender Extremities: normal range of motion Neurological/Psychiatric: no motor/sensory deficits, awake, alert, normal mood/ affect, calm, oriented x 3 Appearance/Memory/Insight: denies illness Behavoir/Eye Contact/Speech: cooperative, normal speech, good eye contact Thoughts/Hallucinations: normal thought pattern, no apparent hallucination Skin: intact, normal color, warm/dry SAD PERSONS Done? CRISIS CONSULT OBTAINED (Marine CALLAHAN,[place]) Progress Differential Diagnosis: drug intoxication, drug overdose, drug withdrawal, electrolyte abnormality Plan of Care: Orders Procedure Date/time Status Regular Diet 11/03 L Active Continuous Observation Monitor 11/02 1924 Active ED CRISIS PSYCH CONSULT 11/02 1924 Active URINE DRUGS OF ABUSE 11/02 1922 Complete URINALYSIS 11/02 1922 Complete TROPONIN LEVEL 11/02 1922 Complete SERUM OSMOLALITY 11/02 1922 Complete ETHANOL 11/02 1922 Complete COMPREHENSIVE METABOLIC PANEL 11/02 1922 Complete CREATINE PHOSPHOKINASE 11/02 1922 Complete CBC WITHOUT DIFFERENTIAL 11/02 1922 Complete ACETONE 11/02 1922 Complete EKG 11/02 1922 Active Laboratory Tests 11/02/171932: Urine Opiates Screen 3454.00 H, Methadone Screen > 735 H, Barbiturate Screen < 60, Ur Phencyclidine Scrn 8.20, Amphetamines Screen < 100, U Benzodiazepines Scrn > 800 H, Urine Cocaine Screen < 50, Urine Cannabis Screen > 80.00 H 11/02/171932: Anion Gap 10, Estimated GFR > 60, BUN/Creatinine Ratio 7.5, Glucose 95, Serum Osmolality 295, Calcium 9.9, Total Bilirubin 0.4, AST 36, ALT 46, Alkaline Phosphatase 78, Creatine Kinase 122, Troponin I < 0.01, Total Protein 7.0, Albumin 4.3, Globulin 2.7, Albumin/Globulin Ratio 1.6, CBC w Diff NO MAN DIFF REQ, RBC 4.26 L, MCV 90.8, MCH 30.6, MCHC 33.8, RDW 13.5, MPV 7.1 L, Gran % 42.3, Lymphocytes % 42.4, Monocytes % 9.5 H, Eosinophils % 5.0, Basophils % 0.8 , Absolute Granulocytes 3.0, Absolute Lymphocytes 3.0, Absolute Monocytes 0.7 H , Absolute Eosinophils 0.4, Absolute Basophils 0.1, Serum Alcohol < 10.0, Acetone Level POSITIVE : UNDILUTED, Urinalysis MOD H, Urine Color YEL, Urine Clarity HAZY H, Urine pH 7.5, Ur Specific [place] 1.010, Urine Protein NEG, Urine Ketones NEG, Urine Nitrite NEG, Urine Bilirubin NEG, Urine Urobilinogen 0.2, Ur Leukocyte Esterase NEG, Ur Microscopic SEDIMENT EXAMINED, Urine RBC 15- 25 H, Urine WBC 1-3 H, Ur Epithelial Cells RARE, Urine Crystals 1+ CA OX H, Urine Bacteria RARE H, Urine Mucus MOD H, Urine Hemoglobin MOD H, Urine Glucose NEG Hand-Off Endorsed To: Adalid Dougherty MD Endorsed Time: 0700 Pending: consult Comments: OSMOLARGAP = 4 (Marine CALLAHAN,[place]) Hand-Off Endorsed To: Harvey Ellis DO Endorsed Time: 1500 Pending: other (bed search) (Ladonna CALLAHAN,Adalid) Departure Departure Disposition: STILL A PATIENT Condition: Stable Clinical Impression Primary Impression: Polysubstance abuse Referrals: Yi CALLAHAN,Ainsley Moreno (PCP/Family) Departure Forms: Customer Survey General Discharge Information (Marine CALLAHAN,[place]) Departure Comments 11/03/17 4:17 PM The patient was signed out to me by Dr. Dougherty at 3 PM. He has been seen evaluated and cleared by crisis. (Harvey Ellis DO)
[2017-11-02 19:55] LABS: ABSOLUTE BASOPHIL COUNT 0.1 /CUMM (0.0-0.2); ABSOLUTE EOSINOPHIL COUNT 0.4 /CUMM (0.0-0.7); ABSOLUTE MONOCYTE COUNT 0.7 /CUMM (0.10-0.60); BASOPHIL % 0.8 % (0.0-2.0); GRANULOCYTE % 42.3 % (42.2-75.2); HEMATOCRIT 38.7 % (42-52); MEAN CORPUSCULAR HGB 30.6 PG (27.0-31.0); MEAN CORPUSCULAR HGB CONC 33.8 G/DL (33.0-37.0); MEAN CORPUSCULAR VOLUME 90.8 FL (80.0-94.0); MEAN PLATELET VOLUME 7.1 FL (7.4-10.4); PLATELET COUNT 281 /CUMM (130-400); RBC DISTRIBUTION WIDTH 13.5 % (11.5-14.5); RED BLOOD CELL CT 4.26 /CUMM (4.70-6.10); WHITE BLOOD CELL COUNT 7.1 /CUMM (4.8-10.8)
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
[2017-11-03] MEDS ORDERED: ALPRAZOLAM0.5 M4 PO (13:20)
[2017-11-03] MEDS ORDERED: METHADONE10 MG/1 M2 PO (13:20)
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
[2017-11-04 16:59] VITALS: BP 141/71
[2017-11-04] MEDS ORDERED: KLONOPIN1 M1 PO (19:52)
[2017-11-04 19:57] VITALS: BP 138/75
[2017-11-05 07:41] VITALS: BP 128/60
--- NOTE | 2017-11-05 10:47 | CPS PROVIDER INIT ASMT PSYCH ---
Psychiatric Admission Chief Data Officer's Note Reviewed: Yes Patient Seen and Examined: Yes Identifying Information: Pt is a 27 year old single male [facility] Chief Complaint: Police report alleges that the patient actually took 45-50 tablets in an overdose and further alleges that he took methadone liquid and rubbing alcohol to wash the pills down. It is not clear whether there was an actual overdose are not since the patient was medically cleared in the emergency room and did not require any medical admission. Reaction to Hospitalization: The patient was admitted on a physician emergency certificate. History of Present Illness Onset of Illness: The patient has been in psychiatric treatment since at least December 2015. Circumstances Leading to Admission: An alleged overdose Problem(s) Justifying Need for Admission: An alleged overdose Past Psychiatric History Past Diagnosis(es)- if any: Unspecified bipolar disorder Opioid use disorder Cannabis use disorder Alcohol use disorder Past Precipitating Factors- if any: Relapse to substance use - Include inpatient and outpatient treatment Treatment History: The patient was admitted to the inpatient psychiatric unit at [facility] on January 17, 2016 and was discharged on January 21, 2016. The patient was admitted that time because "my mom told the police I took pills out of the cabinet and took all of them." The patient was discharged with a diagnosis of unspecified bipolar disorder as well as opioid use disorder intravenous heroin, alcohol alcohol use disorder and cannabis use disorder. History of Suicide Attempts or Gestures There was a previous allegation of the patient taking an overdose in 2015 Substance Abuse History: Patient has history of intravenous heroin use/opioid use disorder Cannabis use disorder Alcohol use disorder Allergies: Coded Allergies: No Known Allergies (12/20/16) Home Med List: Methadone HCl 10 MG/ML ORAL.CONC 80 MG PO DAILY MAINTENCE (Reported) Entered as Reported by Jese Cramer on 11/03/17 1320 Scheduled PRN Medications Alprazolam 0.5 MG TABLET 1 TAB PO 4XDP PRN ANXIETY #120 (Reported) Entered as Reported by Jese Cramer on 11/03/17 1320 - Include any medical condition(s) that may - impact the patient's recovery/remission Past History Medical History Neurological: NONE EENT: NONE Cardiovascular: NONE Respiratory: ASTHMA A CHILD Gastrointestinal: NONE Hepatic: NONE Renal: NONE Musculoskeletal: NONE Psychiatric: anxiety, bipolar disease, depression, IV drug abuse, opioid dependence, substance abuse (also using Marijuana) Endocrine: NONE Blood Disorders: NONE Cancer(s): NONE 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 Juancarlos pak's notes from 2016: "Patient born in and spent first 5-6 years in [place] but been living in [place] most of the time since then then though never completed [place] citizenship, has had "permanent resident card" but recently some problem around "renewal" of current alien status which has been causing patient some anxiety" Social History Living Situation: With mother and stepfather Significant Relationships (family/friends): Mother and stepfather Education: Unknown Vocation/Occupation: Currently unemployed Legal: pt has had several arrests in which have no ended in incarcerations or probation. Pt currently has court on 11/11/17 for an arrest on 08/29/17 for Robbery and Larceny. Pt was in the [employer] from [id number] in which he was dishonorably discharged for his drug use. Cruz states that pt has used all kinds of drugs since 2010 and never sticks with any treatment. Healthly Behaviors Screening Tobacco Screening Tobacco Use from ED Docu: Current Daily Use Daily Tobacco Use Amount/Type: => 5 Cigarettes daily - If tobacco counseling indicated - the following topics are required. - #1 Recognizing dangerous situations. - #2 Coping Skills. - #3 Basic information about quitting. Status of Tobacco Cessation Counseling: #1, #2 AND #3 Completed Cessation Med Status Nicotine Patch Ordered Alcohol Screening - ETOH screen POS if BAL >=80 or Audit-C>= M4/F3 Audit-C Score from Diag Assess: 0 Blood Alcohol Level: Laboratory Tests 11/02 1932 Toxicology Serum Alcohol (<10 MG/DL) < 10.0 Alcohol Use Screening Results: Neg per Audit C &/or BAL - If ETOH counseling indicated - the following topics are required. - #1 Express concern about the patient's - drinking at unhealthy levels, include informing - of national norms for moderate drinking: - men <= 14 drinks/week, max 4 drinks/occasion - women <= 7 drinks/week, max 3 drinks/occasion - #2 Providing feedback, including linking alcohol to - negative physical effects (liver injury, hypertension) - negative emotional effects (relationship problems and - depression) - negative occupational consequences (reduced work - performance) - #3 Advising the patient to abstain from alcohol or - to drink below national norms for moderate drinking - (as listed above). Status of ETOH Use Counseling: N/A B/C NO ETOH Use Metabolic Screening - Screen if on a Neuroleptic Medication - Metabolic screening should include: - Blood Pressure, BMI, Glucose or Hgb A1c, & a - Lipid profile from within the past 365 days. Metabolic Screening Not Applicable, patient not on a neuroleptic. Exam and Plan Mental Status Examination Ambulation Status: Patient was steady on his feet. Appearance: Unremarkable appearance, some visible tattoos Attitude towards examiner: Calm and cooperative. Psychomotor activity: Normal psychomotor activity. Behavior: No abnormal or bizarre behaviors. Quality of speech: Normal speech, not pressured, not slurred. Affect: Constricted affect. Mood: Anxious and somewhat depressed. Suicidal Ideation: Denied thoughts of suicide since arrival to the unit. Homicidal Ideation: Denied violent thoughts or homicidal ideation. Hallucinations: Denied hallucinations B Paranoid/Delusional Material: Denied feeling paranoid, there were no delusions during the interview. Difficulties with thought organization: The patient was coherent, there were no difficulties with organizing his thoughts and no thought disorder. Insight: Partial insight Judgment: Good judgment in hypothetical situations during the interview but his history suggests poor judgment Orientation: Alert and oriented to time, place, and person. Cognition: He did not seem to have any difficulties with information processing during the interview. Memory Function: He did not seem to have difficulties with short-term memory during the interview. Estimate of intellectual functioning: Average Assets/Strengths Patient Identified Assets/Strengths: The patient is intelligent, resourceful, has a supportive mother and stepfather. Impression/Plan Impression and Plan: 27-year-old single white male with significant substance abuse history presented with allegations of overdosing on medications. The patient has been abusing Xanax before coming to the hospital. - Include all active medical diagnosis that require tx DSM 5 Diagnosis(es): Unspecified depressive disorder Unspecified anxiety disorder Opioid use disorder Sedative hypnotic use disorder - Initial Tx Plan for Active Psych & Medical Conditions Treatment Plan: Inpatient psychiatric care with safety checks every 15 minutes Reduce Klonopin to 0.5 mg in the morning 0.5 mg in the afternoon and 2 mg at bedtime Reduce methadone to 70 mg daily Biopsychosocial assessment and collateral information by social work Aftercare planning by social work Nursing assessments and vital signs and patient education by nursing staff Group therapy, milieu therapy, activities therapy Patient will be evaluated daily by a psychiatrist - Factors that would help patient function - in a less restrictive setting. Factors: The patient will be discharge if he continues to deny suicidal ideation and if there is a discharge plan that is deemed to be safe
[2017-11-05 12:00] VITALS: BP 128/61
--- NOTE | 2017-11-05 12:14 | History & Physical ---
General Information and HPI MD Statement: I have seen and personally examined BONG VINES and documented this H&P. The patient is a 27 year old M who presented with a patient stated chief complaint of "I am tired". Source of Information: patient, family, police Exam Limitations: unable to give history History of Present Illness: 27-year-old white male was brought in by ambulance after taking approximately 40 pills of Celexa 40 mg and he swallowed with rubbing alcohol. Mother called the police stating that the patient took the medication on a suicidal attempt. The patient denies. Patient has had drug problems over the years and is on a methadone program. And still smokes pot 2-3 times a week due to all his problems is admitted for evaluation and treatment. Allergies/Medications Allergies: Coded Allergies: No Known Allergies (12/20/16) Home Med list Alprazolam 0.5 MG TABLET 1 TAB PO 4XDP PRN ANXIETY (Reported) Clonazepam (Klonopin) 1 MG TABLET 1 MG PO ANXIETY (Reported) Methadone HCl 10 MG/ML ORAL.CONC 80 MG PO DAILY MAINTENCE (Reported) Compliance With Home Meds: UNKNOWN Past History Travel History Traveled to [place] past 21 day No Medical History Neurological: NONE EENT: NONE Cardiovascular: NONE Respiratory: ASTHMA A CHILD Gastrointestinal: NONE Hepatic: NONE Renal: NONE Musculoskeletal: NONE Psychiatric: anxiety, bipolar disease, depression, IV drug abuse, opioid dependence, substance abuse (also using Marijuana) Endocrine: NONE Blood Disorders: NONE Cancer(s): NONE 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 Exam & Diagnostic Data Last 24 Hrs of Vital Signs/I&O Vital Signs Date Time Temp Pulse Resp B/P B/P Pulse O2 O2 Flow FiO2 Mean Ox Delivery Rate 11/05 1200 58 128/61 11/05 0741 97.9 64 128/60 11/04 1957 98.0 72 138/75 11/04 1659 97.8 70 141/71 11/04 1429 98.1 58 20 122/68 94 Room Air Intake & Output 11/05 1600 11/05 0800 11/05 0000 Intake Total Output Total Balance Patient 153 lb Weight Physical Exam General Appearance Alert, Oriented X3, Cooperative, No Acute Distress Skin No Breakdown, multiple tattoos HEENT PERRLA, EOMI Neck Supple, No JVD, No thryomegaly, +2 Carotid Pulse wo Bruit Lymphatic Axillary nl, Cervical nl Cardiovascular Regular Rate, No Murmurs Lungs Clear to Auscultation, Normal Air Movement Abdomen Normal Bowel Sounds, Soft, No Tenderness, No Hepatospenomegaly, No Masses Neurological Exam Findings: Normal Gait, Normal Speech, Strength at 5/5 X4 Ext, Normal Tone, Sensation Intact, Cranial Nerves 3-12 NL, Reflexes 2+ Cranial Nerves II through XII: intact Extremities No Cyanosis, No Edema, Normal Pulses Vascular Normal Pulses, Pulses Symmetrical Last 24 Hrs of Labs/Jose: Laboratory Tests 11/02/171932: Urine Opiates Screen 3454.00 H, Methadone Screen > 735 H, Barbiturate Screen < 60, Ur Phencyclidine Scrn 8.20, Amphetamines Screen < 100, U Benzodiazepines Scrn > 800 H, Urine Cocaine Screen < 50, Urine Cannabis Screen > 80.00 H 11/02/171932: Anion Gap 10, Estimated GFR > 60, BUN/Creatinine Ratio 7.5, Glucose 95, Serum Osmolality 295, Calcium 9.9, Total Bilirubin 0.4, AST 36, ALT 46, Alkaline Phosphatase 78, Creatine Kinase 122, Troponin I < 0.01, Total Protein 7.0, Albumin 4.3, Globulin 2.7, Albumin/Globulin Ratio 1.6, CBC w Diff NO MAN DIFF REQ, RBC 4.26 L, MCV 90.8, MCH 30.6, MCHC 33.8, RDW 13.5, MPV 7.1 L, Gran % 42.3, Lymphocytes % 42.4, Monocytes % 9.5 H, Eosinophils % 5.0, Basophils % 0.8 , Absolute Granulocytes 3.0, Absolute Lymphocytes 3.0, Absolute Monocytes 0.7 H , Absolute Eosinophils 0.4, Absolute Basophils 0.1, Serum Alcohol < 10.0, Acetone Level POSITIVE : UNDILUTED, Urinalysis MOD H, Urine Color YEL, Urine Clarity HAZY H, Urine pH 7.5, Ur Specific [place] 1.010, Urine Protein NEG, Urine Ketones NEG, Urine Nitrite NEG, Urine Bilirubin NEG, Urine Urobilinogen 0.2, Ur Leukocyte Esterase NEG, Ur Microscopic SEDIMENT EXAMINED, Urine RBC 15- 25 H, Urine WBC 1-3 H, Ur Epithelial Cells RARE, Urine Crystals 1+ CA OX H, Urine Bacteria RARE H, Urine Mucus MOD H, Urine Hemoglobin MOD H, Urine Glucose NEG Assessment/Plan As Ranked By This Provider Problem List: 1. Overdose 2. Polysubstance abuse 3. Depression with suicidal ideation 4. Opiate abuse, continuous 5. Methadone use Miscellaneous Miscellaneous Documentation Attending Case Discussed With: Mirna CALLAHAN,Matthew Primary Care Physician: Ainsley Richmond MD. Patient sees these Specialists psych. Level of Patient Care: ANTOINE [place] Consults Needed: Consulting Specialty: Psychiatry Consulting Physician: Dr. Olivo Reason for Consult: suicidal ideations drug od ?bipolar
--- NOTE | 2017-11-05 14:18 | SOCIAL WORKER PROG NOTE PSYCH ---
Social Work Progress Note Progress Note Pt enjoys art, is making use of his time. Pt is sad, withdrawn, but engageable. Pt exploring discharge options like Apt IOP or Care. Pt feels like he can get sober again, and needs to reconnect with APt and his presciber, he is hopeful he can get his insurance active again as well.
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
[2017-11-05 16:08] VITALS: BP 138/59
[2017-11-05 19:32] VITALS: BP 142/69
--- NOTE | 2017-11-06 07:43 | CP SOUTH PROGRESS NOTE PSYCH ---
Psych (Inpt) Progress Note Progress Note Treatment team (ROME, RN, Group/Activities Therapist, and Psychiatrist) discussed the pt.'s progress, inpatient treatment plan, and aftercare/discharge plans. Laboratory Tests 11/05 2158 Toxicology Urine Opiates Screen (>2000 NG/ML) 318 Methadone Screen (>300 NG/ML) > 735 H Barbiturate Screen (>200 NG/ML) < 60 Ur Phencyclidine Scrn (>25 NG/ML) 8.10 Amphetamines Screen (>1000 NG/ML) < 100 U Benzodiazepines Scrn (>200 NG/ML) > 800 H Urine Cocaine Screen (>300 NG/ML) < 50 Urine Cannabis Screen (>50 NG/ML) > 80.00 H Vital Signs Date Time Temp Pulse B/P B/P O2 FiO2 11/06 0802 97.1 83 142/89 11/05 1932 97.8 63 142/69 11/05 1608 68 138/59 Mental Status and behavior: Patient calm and cooperative. Normal psychomotor activity. No abnormal or bizarre behaviors. Normal speech, not pressured, not slurred. Unreliable, reported feeling anxious, not depressed. Denied thoughts of suicide since arrival to the unit, denied violent thoughts or homicidal ideation. Denied hallucinations, denied feeling paranoid, there were no delusions during the interview. The patient was coherent, there were no difficulties with organizing his thoughts and no thought disorder. Partial insight, history suggests poor judgment, Alert and oriented to time, place, and person. He did not seem to have any difficulties with information processing during the interview. He did not seem to have difficulties with short-term memory during the interview. Assessment: 27-year-old Single White Male with significant substance abuse history presented to ED on a PEER with allegations that the patient "took 45-50 tablets of 40 mg Celexa". Additionally, the PEER alleged that pt. "took methadone liquid form along with rubbing alcohol to wash the pills down. The patient has been abusing Xanax before coming to the hospital. 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 Factors: The patient will be discharge if he continues to deny suicidal ideation and if there is a discharge plan that is deemed to be safe
[2017-11-06 08:02] VITALS: BP 142/89
--- NOTE | 2017-11-06 08:27 | SOCIAL WORKER PROG NOTE PSYCH ---
Social Work Progress Note Progress Note Met with Pablito today. He denied SI/HI, no AH/VH. He rates depression 0/10( worst) and anxiety 9/10. He is anxious to discharge on 11/09. He plans to return to [facility] in [place], [place] for Methadone, and he will return to [facility] in [place] for his psychiatric medications. Pablito has no insurance and is not able to obtain any because his Resident card has , he needs to obtain a new one and it costs $500, which he doesn not have. Apparantly he applied for a waiver but was denied. Pablito pays out of [facility] for his Methadone at [facility] and with Ms. [facility] ($80 per visit) . He has been using the [facility] for reduced cost medications. Expected discharge for 11/09 - his Mother will pick him up around 4pm. Spoke with Pablito about housing - he is homeless, he stated his Father refused to have him back home. Pablito is refusing a half-way bed (211), refuses a sober house, or Crisis and Respite referral. He is also refusing IOP. He stated "I just need to get a job." He considers himself sober and clean off Heroin, minimizes his benzo abuse prior to admission, but does state he wants to "taper off Klonopin." TC - phone meeting with Pablito and his Mother - Ioana Kaufman at 12Noon. Discussed his discharge plan ([facility] and [facility]), informed his Mother that he is refusing a half-way bed, sober house and IOP. Pablito reiterated his plan to work and stay on Methadone. Informed her of his medicatons - Klonopin. She told Pablito she wants him to stay clean and not abuse benzos, she stated "I just want to pick you up in the morning and not see you falling asleep." She mentioned how his son 8yo states how tired he is of his Father falling asleep all the time. His son is under the care of his Mother. Pablito stated he visits with his son at his parents house. TC- Spoke with JASMYN Atkins at [address] , . She confirmed patient can returnt to [facility] on . 11/10/17 for Methadone. [facility] is aware he is on Klonopin and will resume treatment with his precriber prior to admission with [facility] [address] [place] [address], [place] in [place] . TC- Dlefina [facility] APRN [phone] - unable to leave a VM, her VM was full. Please document last dose of methadone on W10.
[2017-11-06 12:42] VITALS: BP 137/71
[2017-11-06 15:45] VITALS: BP 137/63
[2017-11-06 20:31] VITALS: BP 146/70
--- NOTE | 2017-11-07 10:46 | CP SOUTH PROGRESS NOTE PSYCH ---
Psych (Inpt) Progress Note Progress Note Include the following elements, when applicable: Involvement in the active treatment of the patient with behavioral observations of the patient and the patient's response to the treatment. Review of the ongoing treatment process in the context of the treatment plan. Indication of how multi-disciplinary staff members are carrying out the treatment plan. Plans for future interventions and recommendations for revision of the treatment plan. Liaison with other physicians/providers. Progress Note: Pt had difficulties with peer overnight and some behavioral distrubance. None since then. Pt reports that he slept well. No issues, questions or concerns. Denies SI or HI. Waiting to mother to visit today. Current Medications Sig/Oscar Start time Last Medication Dose Route Stop Time Status Admin Acetaminophen 650 MG Q4P PRN 11/04 1145 AC PO Al Hydroxide/Mg 30 ML Q4-6 PRN PRN 11/04 1145 AC Hydroxide PO Chlorpromazine 100 MG AT BEDTIME 11/06 2100 AC 11/06 PO 211 Chlorpromazine 50 MG Q4 HRS NEEDED PRN 11/06 1030 AC PO Clonazepam 1 MG TID 11/06 1017 AC 11/06 PO 11/13 1016 2112 Gabapentin 600 MG Q4 HRS NEEDED PRN 11/06 1145 AC PO Ibuprofen 600 MG Q4P PRN 11/04 1145 AC PO Magnesium Hydroxide 30 ML AT BEDTIME PRN 11/04 1145 AC PO Methadone HCl 50 MG 0800 11/09 0800 AC PO 11/09 0801 Methadone HCl 55 MG 0811/08 0800 AC PO 11/08 0801 Methadone HCl 60 MG 0811/07 0800 DC 11/07 PO 11/07 0801 1000 Nicotine 2 MG Q2 HRS NEEDED PRN 11/04 1200 AC PO Nicotine 21 MG DAILY 11/04 1146 AC 11/06 TOP 0819 Laboratory Tests 11/07 07 0605 2158 Serology Hep Bs Antigen Pending Hepatitis C Antibody Pending HIV 1&2 Ab Western Blot Pending Toxicology Urine Opiates Screen (>2000 NG/ML) 318 Methadone Screen (>300 NG/ML) > 735 H Barbiturate Screen (>200 NG/ML) < 60 Ur Phencyclidine Scrn (>25 NG/ML) 8.10 Amphetamines Screen (>1000 NG/ML) < 100 U Benzodiazepines Scrn (>200 NG/ML) > 800 H Urine Cocaine Screen (>300 NG/ML) < 50 Urine Cannabis Screen (>50 NG/ML) > 80.00 H Vital Signs Date Time Temp Pulse Resp B/P B/P Pulse O2 O2 Flow FiO2 Mean Ox Delivery Rate 11/06 2030 98.1 77 146/70 11/06 1545 69 137/63 11/06 1242 70 137/71 MSE Appearance: as stated age Speech : nl rate, rhythm, volume and prosody Behavior: cooperative Motor: no psychomotor agitation or retardation Mood : fine Affect : flat, non-labile, anxious, irritable, appropriate, constricted Thought process: linear and goal directed Thought content : no delusions or paranoia Perceptions: denied AVHs, denied SI or HI Insight: poor Judgment: poor A/P: Pt with bipolar disorder with improvede mood. Pt does have intermittent behavioral disturbance which is most likely associated with underlying personality organization than from mood sx. -Continue current medication regimen -Encourage integration into the milieu
[2017-11-07 12:30] VITALS: BP 124/68
[2017-11-07 16:02] VITALS: BP 147/70
[2017-11-07 19:57] VITALS: BP 121/60
--- NOTE | 2017-11-07 21:29 | SOCIAL WORKER PROG NOTE PSYCH ---
Social Work Progress Note Progress Note Member Name Member ID Member Subscriber Name Subscriber ID BONG VINES [id number] 1990 BONG VINES [id number] Pended Authorization # Client Authorization # Type of Request [id number] CONCURRENT Date of Admission/ Start of Services Requested From Submission Date 11/04/2017 11/07/2017 11/07/2017 Level of Service Type of Service Level of Care Type of Care INPATIENT/OC MENTAL HEALTH INPATIENT INPATIENT HOSPITAL - INPATIENT [facility]
[2017-11-08 08:09] VITALS: BP 131/73
--- NOTE | 2017-11-08 10:49 | CP SOUTH PROGRESS NOTE PSYCH ---
Psych (Inpt) Progress Note Progress Note Include the following elements, when applicable: Involvement in the active treatment of the patient with behavioral observations of the patient and the patient's response to the treatment. Review of the ongoing treatment process in the context of the treatment plan. Indication of how multi-disciplinary staff members are carrying out the treatment plan. Plans for future interventions and recommendations for revision of the treatment plan. Liaison with other physicians/providers. Progress Note: Pt notes that he is "alright." Requested topical treatment for cold sore. Denies agitation overnight though it was noted by RNs. Denies SI or HI. Current Medications Sig/Oscar Start time Last Medication Dose Route Stop Time Status Admin Acetaminophen 650 MG Q4P PRN 11/04 1145 AC PO Al Hydroxide/Mg 30 ML Q4-6 PRN PRN 11/04 1145 AC Hydroxide PO Chlorpromazine 100 MG AT BEDTIME 11/06 2100 AC 11/07 PO 2117 Chlorpromazine 50 MG Q4 HRS NEEDED PRN 11/06 1030 AC 11/08 PO 0006 Clonazepam 1 MG TID 11/06 1017 AC 11/08 PO 11/13 1016 0846 Gabapentin 600 MG Q4 HRS NEEDED PRN 11/06 1145 AC 11/08 PO 1015 Ibuprofen 600 MG Q4P PRN 11/04 1145 AC PO Magnesium Hydroxide 30 ML AT BEDTIME PRN 11/04 1145 AC PO Methadone HCl 50 MG 0800 11/09 0800 AC PO 11/09 0801 Methadone HCl 55 MG 0800 11/08 0800 DC 11/08 PO 11/08 0801 0814 Nicotine 2 MG Q2 HRS NEEDED PRN 11/04 1200 AC 11/08 PO 1024 Nicotine 21 MG DAILY 11/04 1146 AC 11/08 TOP 0814 Laboratory Tests 11/07 11/05 0605 2158 Serology Hep Bs Antigen (NONREACTIVE) NONREACTIVE Hepatitis C Antibody (NONREACTIVE) NONREACTIVE HIV 1&2 Ab Western Blot (NONREACTIVE) NONREACTIVE Toxicology Urine Opiates Screen (>2000 NG/ML) 318 Methadone Screen (>300 NG/ML) > 735 H Barbiturate Screen (>200 NG/ML) < 60 Ur Phencyclidine Scrn (>25 NG/ML) 8.10 Amphetamines Screen (>1000 NG/ML) < 100 U Benzodiazepines Scrn (>200 NG/ML) > 800 H Urine Cocaine Screen (>300 NG/ML) < 50 Urine Cannabis Screen (>50 NG/ML) > 80.00 H Vital Signs Date Time Temp Pulse Resp B/P B/P Pulse O2 O2 Flow FiO2 Mean Ox Delivery Rate 11/08 08 97.4 101 131/73 11/07 1956 98.2 84 121/60 11/07 1602 94 147/70 11/07 1230 92 124/68 MSE Appearance: as stated age Speech : nl rate, rhythm, volume and prosody Behavior: cooperative Motor: no psychomotor agitation or retardation Mood : fine Affect : flat, non-labile, anxious, irritable, appropriate, constricted Thought process: linear and goal directed Thought content : no delusions or paranoia Perceptions: denied AVHs, denied SI or HI Insight: poor Judgment: poor A/P: Pt with bipolar disorder with improvede mood. Pt does have intermittent behavioral disturbance which is most likely associated with underlying personality organization than from mood sx. -Continue current medication regimen -Encourage integration into the milieu - Added oragel for topical treatment for pain
[2017-11-08 12:14] VITALS: BP 116/55
[2017-11-08 15:25] VITALS: BP 128/64
[2017-11-08 20:04] VITALS: BP 140/67
[2017-11-09 07:49] VITALS: BP 143/60
--- NOTE | 2017-11-09 07:58 | CP SOUTH PROGRESS NOTE PSYCH ---
Psych (Inpt) Progress Note Progress Note I reviewed Dr. Ramirez's notes for Thu and November 07 and 2017 Treatment team (ROME, RN, Group/Activities Therapist, and Psychiatrist) discussed the pt.'s progress, inpatient treatment plan, and aftercare/discharge plans. Mental Status and behavior: Pt. was alert and oriented to time, place, and person. Patient calm and cooperative, showing normal psychomotor activity, no abnormal or bizarre behaviors, normal speech, less anxious, not depressed. Denied thoughts of suicide since arrival to the unit, denied violent thoughts or homicidal ideation. Pt. denied hallucinations, denied feeling paranoid, and there were no delusions during the interview. The patient was coherent. There were no difficulties with organizing his thoughts and no thought disorder. He did not seem to have any difficulties with information processing during the interview. He did not seem to have difficulties with short-term memory during the interview. Assessment: A 27-year-old Single White Male with significant substance abuse history presented to ED on a Police Emergency Exam Request (PEER) that alleged that the patient "took 45-50 tablets of 40 mg Celexa". Additionally, the PEER alleged that the pt. "took methadone liquid form along with rubbing alcohol to wash the pills down. The patient has been abusing Xanax before coming to the hospital. Diagnoses: Unspecified Depressive Disorder Unspecified Anxiety Disorder Opioid Use Disorder Sedative-Hypnotic use disorder Cannabis Use Disorder Treatment Plan Update: Discharge Home Today Celexa". Additionally, the PEER alleged that pt. "took methadone liquid form along with rubbing alcohol to wash the pills down. The patient has been abusing Xanax before coming to the hospital. Diagnoses: Unspecified Depressive disorder Unspecified Anxiety disorder Opioid Use disorder Sedative hypnotic use disorder cannabis Use Disorder Treatment Plan: Change Klonopin to 1 mg TID Reduce methadone by 5 mg daily Add Thorazine PRN Add Gabapentin PRN
[2017-11-09] MEDS ORDERED: NICOTINE PATCH1 EAC3 TOP (08:18)
[2017-11-09] MEDS ORDERED: GABAPENTIN300 M2 PO (08:18)
[2017-11-09] MEDS ORDERED: METHADONE HCL10 M1 PO (09:03)
[2017-11-09] MEDS ORDERED: KLONOPIN1 M1 PO (09:03)
[2017-11-09] MEDS ORDERED: CHLORPROMAZINE50 M2 PO (09:03)
--- NOTE | 2017-11-09 10:28 | Patient Discharge Instructions ---
Psych Discharge Inst General Discharge Information Reason for Admission: Police report alleges that the patient actually took 45-50 tablets in an overdose and further alleges that he took Psy Discharge Primary Diag+ Unspecified Bipolar DO Psy Discharge Secondary Diag+ Opioid Use Disorder Summary Tests/Major Procedures Lab Hct 38.7 % L 11/02/17 1933 Hgb 13.1 G/DL L 11/02/17 1933 Methadone Screen > 735 NG/ML H 11/05/17 2158 U Benzodiazepines Scrn > 800 NG/ML H 11/05/17 2158 Urine Cannabis Screen > 80.00 NG/ML H 11/05/17 2158 Studies Pending at DC: None Patient Instructions Contact Information Your Psychiatrist on [facility] was Mirna CALLAHAN,Matthew * If you are experiencing an emergency related to this hospitalization, please call [phone] to contact the treating psychiatrist or the psychiatrist-on- call. * To Request a copy of your medical records, please contact the Medical Records Department at [phone]. * To request results of studies pending at the time of discharge, please call [phone]. * Continue your Medications until directed to stop by your Healthcare provider. General Medication Information Please continue to take your new medications and your continued home medications , unless otherwise indicated on your discharge medication list, or unless directed by your MD or LOOPING INSPECTOR to stop them. Special Instructions Diet Regular Activity As Tolerated - Tobacco Use Treatment Offered Post DC Medications Offered: Script Given-See Med List Post DC Tobacco Treatment Plan: Refused Tobacco Tx Pgm - EtOH/Drug Use D/O Treatment Offered Post DC Medications Offered: Script Given-See Med List Post DC EtOH/SubAbuse TX Plan: Other SubAbuse/Dual Pgm Metabolic Screening Not Applicable, patient not on a neuroleptic. Advance Directives Does the Patient have Medical Advance Directives No/Refused further info Does Pt have Psychiatric Advance Directives? No/Refused further info Does Patient have a Designated Surrogate Decision Maker: No Information About Psychiatric Advance Directives Provided? Refused Discharge Plan Post Hospital Treatment Plan: [facility]
--- NOTE | 2017-11-09 10:52 | DISCHARGE SUMMARY REPORT-PSYCH ---
Visit Information Visit Dates/Diagnosis' Admission Date: 11/04/17 Discharge Date: 11/09/17 Reason for Admission: Police report alleges that the patient actually took 45-50 tablets in an overdose and further alleges that he took Psy Discharge Primary Diag: Unspecified Bipolar DO Psy Discharge Secondary Diag: Opioid Use Disorder Hospital Course Significant Lab Findings: Lab Methadone Screen > 735 NG/ML H 11/05/172157 U Benzodiazepines Scrn > 800 NG/ML H 11/05/172157 Urine Cannabis Screen > 80.00 NG/ML H 11/05/172157 Course Complications: Patient did not have any complications while he was on the inpatient psychiatric unit. Consultations: The patient had a history and physical examination by the campus administrative assistant. Please refer to the patient's electronic health record for the details of the H&P. Allergies: Coded Allergies: No Known Allergies (12/20/16) Hospital Course/TX Response: 11/05/2017: Impression and Plan: 27-year-old single white male with significant substance abuse history presented with allegations of overdosing on medications. The patient has been abusing Xanax before coming to the hospital. Diagnoses: Unspecified depressive disorder Unspecified anxiety disorder Opioid use disorder Sedative hypnotic use disorder Treatment Plan: Inpatient psychiatric care with safety checks every 15 minutes Reduce Klonopin to 0.5 mg in the morning 0.5 mg in the afternoon and 2 mg at bedtime Reduce methadone to 70 mg daily Biopsychosocial assessment and collateral information by social work Aftercare planning by social work Nursing assessments and vital signs and patient education by nursing staff Group therapy, milieu therapy, activities therapy Patient will be evaluated daily by a psychiatrist. 11/06/2017: Change Klonopin to 1 mg TID Reduce methadone by 5 mg daily Add Thorazine PRN, Add Gabapentin PRN 11/07/2017: Dr. Ramirez's Assessment and Plan: Pt with bipolar disorder with improvede mood. Pt does have intermittent behavioral disturbance which is most likely associated with underlying personality organization than from mood sx. -Continue current medication regimen -Encourage integration into the milieu. 11/08/2017: -Continue current medication regimen -Encourage integration into the milieu - Added oragel for topical treatment for pain 11/09/2017: Mental Status and behavior: Pt. was alert and oriented to time, place, and person. Patient calm and cooperative, showing normal psychomotor activity, no abnormal or bizarre behaviors, normal speech, less anxious, not depressed. Denied thoughts of suicide since arrival to the unit, denied violent thoughts or homicidal ideation. Pt. denied hallucinations, denied feeling paranoid, and there were no delusions during the interview. The patient was coherent. There were no difficulties with organizing his thoughts and no thought disorder. He did not seem to have any difficulties with information processing during the interview. He did not seem to have difficulties with short-term memory during the interview. Assessment: A 27-year-old Single White Male with significant substance abuse history presented to ED on a Police Emergency Exam Request (PEER) that alleged that the patient "took 45-50 tablets of 40 mg Celexa". Additionally, the PEER alleged that the pt. "took methadone liquid form along with rubbing alcohol to wash the pills down. The patient has been abusing Xanax before coming to the hospital. Diagnoses: Unspecified Depressive Disorder Unspecified Anxiety Disorder Opioid Use Disorder Sedative-Hypnotic use disorder Cannabis Use Disorder Treatment Plan Update: Discharge Home Today Discharge HBIPS - Tobacco Use Treatment Offered Post DC Medications Offered: Script Given-See Med List Post DC Tobacco Treatment Plan: Refused Tobacco Tx Pgm - EtOH/Drug Use D/O Treatment Offered Post DC Medications Offered: Script Given-See Med List Post DC EtOH/SubAbuse TX Plan: Other SubAbuse/Dual Pgm Metabolic Screening - Screen if on a Neuroleptic Medication - Metabolic screening should include: - Blood Pressure, BMI, Glucose or Hgb A1c, & a - Lipid profile from within the past 365 days. Metabolic Screening Not Applicable, patient not on a neuroleptic. Discharge Instructions General Discharge Information Multiple Neuroleptics: Not Applicable Discharge Diet Regular Discharge Activity As Tolerated DC Disposition: To a friend/self-care Referrals Ordered Referrals Provider Referral 11/10/17 For Groups: [[facility]] [facility] [address] [place], [place] Fx#[phone] Walk-in 6am for Methadone dosing attend groups Provider Referral For Groups: [Prescriber ] Call Prescriber for appointment: Delfina Fabian APRN [address], [place] PH#[phone] Prescriptions Stop taking the following medications: Alprazolam (Alprazolam) 0.5 MG TABLET ORAL 4 times daily as needed as needed for ANXIETY Qty = 120 Methadone HCl (Methadone HCl) 10 MG/ML ORAL.CONC ORAL DAILY Clonazepam (Klonopin) 1 MG TABLET ORAL Start taking the following new medications: Nicotine (Nicotine Patch) 21 MG/24 HOUR PATCH.TD24 21 Milligram On the skin DAILY Qty = 14 No Refills Comments: Last Taken:11/09/17 Time:8am Gabapentin (Gabapentin) 300 MG CAPSULE 600 Milligram ORAL EVERY 4 HOURS NEEDED as needed for anxiety Qty = 90 No Refills Comments: Last Taken:11/08/17 Time:10pm Methadone Hydrochloride (Methadone HCl) 10 MG TABLET 5 Tablet ORAL DAILY Qty = 1 No Refills Comments: Last Taken:11/09/17 Time:8am Clonazepam (Klonopin) 1 MG TABLET 1 Tablet ORAL THREE TIMES DAILY Qty = 45 No Refills Comments: Last Taken:11/09/17 Time:8am Chlorpromazine HCl (Chlorpromazine HCl) 50 MG TABLET 1 Tablet ORAL EVERY 6 HOURS NEEDED as needed for anxiety or insomnia Qty = 60 No Refills Comments: Last Taken:11/09/17 Time:12am Studies Pending at Discharge None Copies To: Delfina Fabian APRN None Copies To: Delfina Fabian APRN
--- NOTE | 2017-11-09 11:40 | SOCIAL WORKER PROG NOTE PSYCH ---
Social Work Progress Note Progress Note Explored discharge options, he wants to stay on Methadone and return to [facility] in [place]. He is aware that if that is not enough treatment he can explore 30 day rehabs. He denies that he needs this level of care now. He reports he will be staying with a friend and his Mother is a support in terms of transportation. Pt requesting discharge and denies si/hi/ah/vh. Pt attempted to reach out to previous prescriber Delfina Fabian APRN her voicemail was full, he states he usually contacts her via text, and now that his insurance has been reinstated he will text her upon discharge and have her contact us in regards to this treatment episode. Faxed Referral(s) Referred To: DICKSON CHANEL Transition of Care Documents sent: DC Instructions, Health Summary Faxed to: REBEKAH FORMAN Fax #: [phone] Faxed by: Argelia Tyler Date faxed: 11/09/17 Time Faxed: [phone]
== END 2017-11-09 12:10 | DRG 753 ==
LOC: ERH 19:19 → CP SOUTH 11-04 11:42 → ERHI 11-04 11:42 → ENTRNSPT 11-04 16:30 → EDTRNSPT 11-04 16:35 → EDTRNSPTSTS 11-04 16:35 → CP SOUTH 11-04 16:49 → CMPTRNSPT 11-04 16:55 → ENRESERV 11-04 23:59 → CP SOUTH 11-09 12:10
PROVIDERS: Emergency Medicine
DX: F31.9 Bipolar disorder, unspecified (principal); F11.10 Opioid abuse, uncomplicated
CPT/HCPCS: 36415; 80307; 81001; 86803; 87389; 93005; 93010; 96374; 96375; G0463; G0480; J2310; J2405; J3101

== ENCOUNTER 2017-11-10 11:54 | Emergency (ER) | payer OTHER ==
[~2017-11-10] VITALS: Ht 177.8 cm; Wt 70.3 kg
[~2017-11-10 11:54] MED LIST changes: +ALPRAZOLAM0.5 M4 PO; +CHLORPROMAZINE50 M2 PO; +GABAPENTIN300 M2 PO; +KLONOPIN1 M1 PO; +METHADONE10 MG/1 M2 PO; +NICOTINE PATCH1 EAC3 TOP
--- NOTE | 2017-11-10 12:05 | ED PSYCHIATRIC COMPLAINT ---
See Addendum History of Present Illness General Chief Complaint: Psychiatric Related Complaint Stated Complaint: +SI, JUST D/C'D FROM CPS Source: patient Exam Limitations: no limitations Vital Signs & Intake/Output Vital Signs & Intake/Output Vital Signs Date Time Temp Pulse Resp B/P B/P Pulse O2 O2 Flow FiO2 Mean Ox Delivery Rate 11/11 1055 98.0 87 20 101/54 98 Room Air 11/11 0835 97.6 82 20 117/61 98 Room Air 11/11 0550 96.3 76 20 123/70 98 Room Air 11/10 2239 98.2 63 16 103/57 97 Room Air 11/10 1756 97.5 84 16 96/59 96 Room Air 11/10 1628 62 115/60 11/10 1558 96.8 75 16 74/38 97 Room Air 11/10 1400 97.6 81 12 110/58 97 Room Air 11/10 1201 98.4 114 18 148/79 98 Room Air ED Intake and Output 11/11 0000 11/10 1200 Intake Total Output Total Balance Patient 155 lb Weight Weight Reported by Patient Measurement Method Allergies Coded Allergies: No Known Allergies (12/20/16) Reconcile Medications Chlorpromazine HCl 50 MG TABLET 1 TAB PO Q6-PRN PRN anxiety or insomnia Clonazepam (Klonopin) 1 MG TABLET 1 TAB PO TID anxiety Gabapentin 300 MG CAPSULE 600 MG PO Q4 HRS NEEDED PRN anxiety Methadone Hydrochloride (Methadone HCl) 10 MG TABLET 5 TAB PO DAILY Opioid use Nicotine (Nicotine Patch) 21 MG/24 HOUR PATCH.TD24 21 MG TOP DAILY smoking Triage Note: 27 YO MALE TO [facility] FOR EVAL OF +SI, PT WAS D/C FROM CPS YESTERDAY. REPORTS "WHEN I GOT OUT AND REZLIED WHAT IT WAS LIKE TO BE HOMELESS I WANTED TO KILL MYSELF" ADMITS TO USING COCAINE YESTERDAY. PT ADMITS TO USING HEROIN YESTERDAY. PT FALLING ASLEEP THOUGHOUT TRIAGE PROCESS, DENIES ANY DRUG USE TODAY. Triage Nurses Notes Reviewed? yes Onset: Abrupt Duration: constant Timing: recent history Severity: severe Severity Numbers: 10 HPI: Patient is a 27-year-old male with a past medical history of polysubstance abuse and suicide ideation and depression who was admitted and discharged from Inpatient Psychiatry yesterday where he states that due to his homelessness and worsening depression when he left he has exacerbation of his thoughts of harming himself Does admit to cocaine use yesterday and heroin today (Kleber Hunt) Past History Travel History Traveled to [place] past 21 day No Medical History Any Pertinent Medical History? 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 No (Kleber Hunt) Review of Systems Review of Systems Constitutional: Reports: no symptoms. EENTM: Reports: no symptoms. Respiratory: Reports: no symptoms. Cardiovascular: Reports: no symptoms. GI: Reports: no symptoms. Genitourinary: Reports: no symptoms. Musculoskeletal: Reports: no symptoms. Skin: Reports: no symptoms. Neurological/Psychological: Reports: see HPI. Hematologic/Endocrine: Reports: no symptoms. Immunologic/Allergic: Reports: no symptoms. All Other Systems: Reviewed and Negative (Kleber Hunt) Physical Exam Physical Exam General Appearance: intoxicated Head: atraumatic Eyes: Bilateral: normal appearance, PERRL, EOMI. Ears, Nose, Throat: normal pharynx, normal ENT inspection Respiratory: normal breath sounds, chest non-tender, no respiratory distress Cardiovascular: tachycardia Neurological/Psychiatric: no motor/sensory deficits, awake, calm Appearance/Memory/Insight: appropriate appearance, appropriate insight, denies illness Behavoir/Eye Contact/Speech: cooperative Thoughts/Hallucinations: no apparent hallucination Skin: intact, normal color SAD PERSONS SAD PERSONS Response Value Male Sex? yes 1 Depression/Hopelessness? yes 2 Previous Attempts/Psych Care yes 1 Excessive Ethanol/Drug Use? yes 1 Single//? yes 1 Organized/Serious Attempt yes 2 Social Support? has no support 1 Stated Future Intent? yes 2 Total 11 SAD PERSONS Done? yes (Diana EVERETT,Kleber) Progress Differential Diagnosis: drug intoxication, drug overdose, drug withdrawal, electrolyte abnormality, encephalitis, hypoglycemia, hypothyroidism, IC hem/mass /tumor, meningitis Plan of Care: Orders Procedure Date/time Status ED CRISIS PSYCH CONSULT 11/11 1103 Active Regular Diet 11/10 D Active Continuous Observation Monitor 11/10 1203 Active URINE DRUG SCREEN FOR ER ONLY 11/10 1203 Complete ETHANOL 11/10 1203 Complete COMPREHENSIVE METABOLIC PANEL 11/10 1203 Complete CBC WITHOUT DIFFERENTIAL 11/10 120 Complete ED CRISIS PSYCH CONSULT 11/10 1203 Active Laboratory Tests 11/10/17 2006: Urine Opiates Screen > 4000.00 H, Methadone Screen > 735 H, Barbiturate Screen 61, Ur Phencyclidine Scrn 18.50, Amphetamines Screen < 100, U Benzodiazepines Scrn 200, Urine Cocaine Screen > 1000 H, Urine Cannabis Screen 77.80 H 11/10/17 1235: Anion Gap 14, Estimated GFR > 60, BUN/Creatinine Ratio 13.8, Glucose 118 H, Calcium 9.3, Total Bilirubin 0.7, AST 24, ALT 20 L, Alkaline Phosphatase 66, Total Protein 7.1, Albumin 4.5, Globulin 2.6, Albumin/Globulin Ratio 1.7, CBC w Diff NO MAN DIFF REQ, RBC 4.14 L, MCV 91.3, MCH 30.5, MCHC 33.4, RDW 13.6, MPV 6.7 L, Gran % 69.5, Lymphocytes % 20.6, Monocytes % 8.3, Eosinophils % 1.3, Basophils % 0.3, Absolute Granulocytes 5.6, Absolute Lymphocytes 1.7, Absolute Monocytes 0.7 H, Absolute Eosinophils 0.1, Absolute Basophils 0, Serum Alcohol < 10.0 Upon initial presentation patient has suspicion of polysubstance abuse no respiratory distress however due to his presentation of opiate use prior to arrival patient did have an oxygen saturation monitor placed on him sitter was ordered 1305 AT THIS Time it was not medically emergent to administer Narcan 1401- O2 SAT 97% RA 1518 O2 SAT 100% RA nursing staff does note that patient had a hypotensive event IV fluids were no start patient responded 1930 oxygen saturation 98% nursing staff does indicate that patient had a hypotensive event IV fluids were administered 2131 patient still resting comfortably bedside oxygen saturation 96% Hand-Off Endorsed To: Sim Cole MD Endorsed Time: 2300 Pending: consult (Kleber Hunt) Comments: Addendum on 11/11/2017 at 11:[address] Herron: I assumed care at 7 AM shift change from Dr. Cole while awaiting crisis evaluation. They did see the patient and they have deemed him safe for outpatient management, with resources provided for substance use disorder, opiate dependence, and depressive disorder unspecified. His mother will transport him to his methadone clinic, and he will follow up as recommended. This disposition was recommended by the attending psychiatrist on-call. (Raj Herron DO) Departure Departure Disposition: STILL A PATIENT Condition: Stable Clinical Impression Primary Impression: Polysubstance abuse Secondary Impressions: Depression, Suicide ideation Referrals: Yi CALLAHAN,Anisley Moreno (PCP/Family) Departure Forms: Customer Survey General Discharge Information (Kleber Hunt) Departure Comments pt to be signed out to dr. herron, 11/11/17, 7am. (Kelsey CALLAHAN,Sim Marquez) Departure Time of Disposition: 1123 Additional Instructions: Please follow-up with the resources as provided by the crisis team. (Rja Herron DO) Critical Care Note Critical Care Note Critical Care Time: 30-74 min (Kleber Hunt)
[2017-11-10 12:45] LABS: ABSOLUTE BASOPHIL COUNT 0 /CUMM (0.0-0.2); ABSOLUTE EOSINOPHIL COUNT 0.1 /CUMM (0.0-0.7); ABSOLUTE GRANULOCYTE CT 5.6 /CUMM (1.4-6.5); ABSOLUTE LYMPH COUNT 1.7 /CUMM (1.2-3.4); ABSOLUTE MONOCYTE COUNT 0.7 /CUMM (0.10-0.60); BASOPHIL % 0.3 % (0.0-2.0); EOSINOPHIL % 1.3 % (0-5); HEMATOCRIT 37.8 % (42-52); MEAN CORPUSCULAR HGB 30.5 PG (27.0-31.0); MEAN CORPUSCULAR HGB CONC 33.4 G/DL (33.0-37.0); MEAN CORPUSCULAR VOLUME 91.3 FL (80.0-94.0); MEAN PLATELET VOLUME 6.7 FL (7.4-10.4); PLATELET COUNT 282 /CUMM (130-400); RBC DISTRIBUTION WIDTH 13.6 % (11.5-14.5); RED BLOOD CELL CT 4.14 /CUMM (4.70-6.10); WHITE BLOOD CELL COUNT 8.1 /CUMM (4.8-10.8)
[2017-11-10 12:48] LABS: GRANULOCYTE % 69.5 % (42.2-75.2)
--- NOTE | 2017-11-10 15:21 | ED PSY CRISIS COLLATERAL NOTE ---
Collateral Note Collateral Note Family/Inform/Jessy Contacts: 11am -Call from pt's mother who reports pt has court tomorrow and if he doesn't attend he will need a letter faxed to court. She reports she called the court. 2 pm- received call from Delfina Fabian APRN [phone] who was informed that pt was tx here by pt's mother and JOELLEN was looking to see if she could assist pt with a Klonopin taper through outpt tx. Upon further discussion she was not aware he was in ED or CPS recently, but just returning an old phone call message left by pt's mother. Sw went to see pt during this call. Pt could not keep his eyes open to speak with sw. He did respond to sw touching his shoulder and calling his name. He responded only for a second. Pt not yet able to participate in Crisis eval. 3 pm- Pt's mother called upset she had not heard anything about her son. Mother informed he remains sleeping and unable to participate in Crisis eval.
[2017-11-11 10:55] VITALS: BP 101/54
--- NOTE | 2017-11-11 11:03 | ED PSYCH CRISIS CONSULTATION ---
Crisis Consult Basic Assessment Date of Consult: 11/11/17 Responsible Person/Accompanied By: Self Insurance Authorization: Insurance #1: Insurance name: GLORIA SHEIKH Phone number: Policy number: [id number] Group number: Authorization number: ED Provider: Patient's ED Provider: Raj Fuller DO Primary Care Physician: Patient's PCP: Ainsley Richmond MD PCP's Current Psychiatrist: Delfina Fabian APRN Chief Complaint: Psychiatric Related Complaint Patient's Quote: "I Just had really intense thoughts yesterday of killing myself " Present Illness: Pt is a 27 yo white male presenting to ED yesterday with suicidal thoughts. Pt brought himself into ED complaining of intense thoughts to harm himself. Upon evaluation pt stated, "I couldn't get it out of my head, I had strong feelings to hurt myself. Today I feel much better". PT has a past history of substance abuse and suicide attempts. Today, pt reports he is "feeling better" and "I don' t feel like hurting myself anymore". Pt states that " the thoughts were just so intense yesterday, so "I brought myself back here" ([facility]). Pt's UDS was positive for Marijuana, Opiates, Methadone and Cocaine. When asked if pt had followed up with discharge plan from [facility] pt stated "I went back to [facility] for [facility]adone but I didn't sign up for groups yet". Pt is currently staying with a friend (FRANCISCO), pt states that FRANCISCO is very supportive with pt's recovery plan. FRANCISCO associates with many current substance abusers but assures the pt that he will no longer allow these people into the household to help pt successfully achieve sobriety. Crisis spoke with pt's Mother, Ioana Kaufman ([phone]) and she provided the following history: Pt currently has court on 11/11/17 for an arrest on 08/29/17 for robbery and larceny. Mother and pt state that pt struggles with opiate dependancy and continually relapses after short stints of sobriety. Pt's mother said that she believes FRANCISCO is a supportive friend and does not think an admission to [facility] will be beneficial to the pt. Crisis spoke with [facility] (Macario Ramirez) , Pt is to return for dosing on 11/11/17 and return for intake to groups on 11/12/17. Pt is currently seeing Delfina Fabian APRN for his medications. Pt feels safe and would like to return to 's and go back to [facility]. A C-SSRS was completed. Pt had a suicide attempt last week where he ingested 45 -50 40 mg tablets of Celexa and washed it down with methadone and rubbing alcohol. Recent activating events include his relapse and recent homelessness. Pt has a history of psychiatric diagnosis and treatments and has been noncompliant with treatment in the past. Clinically pt is overall stable and has a history of substance abuse. Protective factors include his ability to identify reasons to live, his responsibility to his mother and son and his supportive family and treatment network. Patient's Address: [address] [place] [address] [place] [address] Other Phone Number: Who Do You Live With? Friend ("FRANCISCO") Family/Informants Interviewed: Crisis spoke with Pt's Mother, Step Father and [facility] [place] Allergies - Coded Allergies: No Known Allergies (12/20/16) Current Medications - Scheduled Medications Clonazepam (Klonopin) 1 MG TABLET 1 TAB PO TID anxiety #45 TAB Methadone Hydrochloride (Methadone HCl) 10 MG TABLET 5 TAB PO DAILY Opioid use #1 TAB Prescribed by Matthew Bradley MD on 11/09/17 Nicotine (Nicotine Patch) 21 MG/24 HOUR PATCH.TD24 21 MG TOP DAILY smoking #14 PATCH Prescribed by Matthew Bradley MD on 11/09/17 Scheduled PRN Medications Chlorpromazine HCl 50 MG TABLET 1 TAB PO Q6-PRN PRN anxiety or insomnia #60 TAB Prescribed by Matthew Bradley MD on 11/09/17 Gabapentin 300 MG CAPSULE 600 MG PO Q4 HRS NEEDED PRN anxiety #90 CAP Prescribed by Matthew Bradley MD on 11/09/17 Discontinued Medications Alprazolam 0.5 MG TABLET 1 TAB PO 4XDP PRN ANXIETY #120 (Reported) Discontinued reason: Changed to different med Clonazepam (Klonopin) 1 MG TABLET 1 MG PO ANXIETY (Reported) Discontinued reason: Changed Dose Methadone HCl 10 MG/ML ORAL.CONC 80 MG PO DAILY MAINTENCE (Reported) Discontinued reason: Changed Dose Laboratory Results: Laboratory Tests 11/10/17 2006: Urine Opiates Screen > 4000.00 H, Methadone Screen > 735 H, Barbiturate Screen 61, Ur Phencyclidine Scrn 18.50, Amphetamines Screen < 100, U Benzodiazepines Scrn 200, Urine Cocaine Screen > 1000 H, Urine Cannabis Screen 77.80 H 11/10/17 1235: Anion Gap 14, Estimated GFR > 60, BUN/Creatinine Ratio 13.8, Glucose 118 H, Calcium 9.3, Total Bilirubin 0.7, AST 24, ALT 20 L, Alkaline Phosphatase 66, Total Protein 7.1, Albumin 4.5, Globulin 2.6, Albumin/Globulin Ratio 1.7, CBC w Diff NO MAN DIFF REQ, RBC 4.14 L, MCV 91.3, MCH 30.5, MCHC 33.4, RDW 13.6, MPV 6.7 L, Gran % 69.5, Lymphocytes % 20.6, Monocytes % 8.3, Eosinophils % 1.3, Basophils % 0.3, Absolute Granulocytes 5.6, Absolute Lymphocytes 1.7, Absolute Monocytes 0.7 H, Absolute Eosinophils 0.1, Absolute Basophils 0, Serum Alcohol < 10.0 Past History Past Medical History Neurological: NONE EENT: NONE Cardiovascular: NONE Respiratory: ASTHMA A CHILD Gastrointestinal: NONE Hepatic: NONE Renal: NONE Musculoskeletal: NONE Psychiatric: anxiety, bipolar disease, depression, IV drug abuse, opioid dependence, substance abuse (also using Marijuana) Endocrine: NONE Blood Disorders: NONE Cancer(s): NONE WAGON PERSON/Reproductive: NONE Past Surgical History Surgical History: 1 Psychosocial History Strengths/Capabilities: Pt has a supportive family and is currently living with supportive friend. Pt expressed interest in treatment. Physical Limitations (Interventions): None Psychiatric Treatment History Psych Treatment Psychiatric Treatment Yes Inpatient Treatment Yes Outpatient Treatment No Location of Treatment [facility] Reason for Treatment Unspecified Bipolar Disorder, MRE Mixed Episode Opiod Use D/O partial Remission Cannabis Use Disorder ETOH Use Dates of Treatment 11/04/17-11/09/17 Response to Treatment Pt to follow up with [facility] [place] for additional treatment upon discharge Diagnosis by History: Unspecified Bipolar Disorder, MRE Mixed Episode Opiod Use D/O partial Remission Cannabis Use Disorder ETOH Use Substance Use/Abuse History Drug Use/Abuse 1 Substances Used/Abused Yes Substance Used/Abused Heroin First Use 2010 Last Used 11/09/17 How much used/taken Varies How often 2-3 times a week For how long Years Route of use Pt has Hx of Iv Heroin use Drug Use/Abuse 2 Substances Used/Abused Yes Substance Used/Abused Prescribed Opiates (Methadone) Last Used 11/09/17 How much used/taken 60mg How often Daily Route of use Oral Drug Use/Abuse 3 Substances Used/Abused Yes Substance Used/Abused Marijuana Last Used 11/09/17 How much used/taken Varies How often 2-3 times a week For how long years Route of use Smoke Drug Use/Abuse 4 Substances Used/Abused Yes Substance Used/Abused Benzodiazepines First Use 2010 Last Used 11/02/17 How much used/taken Unk bottle of 120 tablets found empty,father states 12-16 pills taken How often Daily Route of use Oral Substance Abuse Treatment Substance Abuse Treatment Past Substance Abuse TX Yes Inpatient Treatment No Outpatient Treatment Yes Location of Treatment [facility] Reason for Treatment substance abuse Dates of Treatment current Response to Treatment intermittent noncompliance Current Mental Status Mental Status Orientation: Person, Place, Situation Affect: Sad, WNL Speech: WNL Neuro-vegetative: WNL Appearance Appearance- Dress/Hygiene: Pt is dressed in hospital scrubs. Hygiene was wnl. Behaviors Thought Process: WNL Thought Content: WNL Memory: WNL Insight: Fair SI/HI Risk Assessment Past Suicidal Ideation/Attempts Yes Current Suicidal Ideation/Att No Past Homicidal Ideation/Att: No Current Homicidal Ideation/Attempts No Degree of Intent: None Risk Factors: history of suicide atmpts, SA/MH hospitalized, substance abuse, poor impulse control, male Lethality Ratin PTSD Checklist PTSD Done? patient declined ED Management Sitter: No Restraints: No DSM5/PS Stressors/Medical Prob Diagnosis' (DSM 5, Stressors, Medical): F31.9 Unspecified Bipolar Disorder F11.20 Opiate Use Disorder F13.99 Unspecified Sed/Hyp/Anx Use Disorder F12.20 Cannabis Use Disorder, Severe Current GAF: 45 Departure Disposition Psych Medical Clearance Date: 11/11/17 Medically Cleared at: 30 Time Started: 929 Time Ended: 1030 Psychiatrist Consulted: Dr. Bradley Date Disposition Established: 11/11/17 Time Disposition Established: 1100 Plan for Disposition - Modality: Outpatient Facility: [facility] Follow-up Appt Date: 11/11/17 Follow-Up Appt Time: 1400 Contact: Macario Shahid Rationale for Disposition: Pt is currently not suicidal and has strong support system of family and friends. Pt's current needs meet an outpatient level of care which is recommended at this time. Pt is to follow up with [facility] [place] in regards to attending groups and methadone dosing Referrals Yi CALLAHAN,Ainsley Moreno (PCP/Family)
== END 2017-11-11 11:29 ==
LOC: ERH 11:54
PROVIDERS: Physician Assistant
DX: F14.10 Cocaine abuse, uncomplicated (principal); F11.10 Opioid abuse, uncomplicated; F32.9 Major depressive disorder, single episode, unspecified
CPT/HCPCS: 80307; G0463; G0480